=== PATIENT | female | born 1950 | race Caucasian/White ===

== ENCOUNTER → 2024-01-11 08:56 | Outpatient (REF) | payer MEDICARE, OTHER, SELFPAY | LOC: RAD 08:56 | PROVIDERS: ATTENDING PHYSICIAN Student in an Organized Health Care Education/Training Program | DX: M54.30 Sciatica, unspecified side (principal) | CPT/HCPCS: 72110 ==

== ENCOUNTER → 2024-01-31 10:01 | Outpatient (REF) | payer MEDICARE, OTHER, SELFPAY ==
[2024-01-31 11:35] LABS: Blood Urea Nitrogen 20 mg/dl (7-17); Calcium 9.9 mg/dl (8.4-10.2); Carbon Dioxide 27 mmol/L (22-30); Chloride 103 mmol/L (98-107); Glucose 92 mg/dl (70-99); Potassium 3.9 mmol/L (3.5-5.1); Sodium 135 mmol/L (135-145); eGFR 48.09
== END ==
LOC: REG 10:01
PROVIDERS: ATTENDING PHYSICIAN Urology; FAMILY PHYSICIAN Student in an Organized Health Care Education/Training Program
DX: N30.10 Interstitial cystitis (chronic) without hematuria (principal); N32.81 Overactive bladder; M62.89 Other specified disorders of muscle; R31.9 Hematuria, unspecified
CPT/HCPCS: 36415; 80048

== ENCOUNTER → 2024-02-01 14:01 | Outpatient (REF) | payer MEDICARE, OTHER, SELFPAY | LOC: RAD 14:01 | PROVIDERS: ATTENDING PHYSICIAN Urology; FAMILY PHYSICIAN Student in an Organized Health Care Education/Training Program | DX: R31.9 Hematuria, unspecified (principal) | CPT/HCPCS: 74178; Q9967 ==

== ENCOUNTER → 2024-02-05 10:07 | Outpatient (REF) | payer MEDICARE, OTHER, SELFPAY | LOC: PAVMRI 10:07 | PROVIDERS: ATTENDING PHYSICIAN Student in an Organized Health Care Education/Training Program | DX: M54.40 Lumbago with sciatica, unspecified side (principal) | CPT/HCPCS: 72148 ==

== ENCOUNTER → 2024-02-15 08:27 | Outpatient (REF) | payer MEDICARE, OTHER, SELFPAY | LOC: RAD 08:27 | PROVIDERS: ATTENDING PHYSICIAN Student in an Organized Health Care Education/Training Program | DX: R14.0 Abdominal distension (gaseous) (principal) | CPT/HCPCS: 76705 ==

== ENCOUNTER → 2024-03-03 14:45 | Outpatient (REF) | payer MEDICARE, OTHER, SELFPAY | LOC: HWRCS 14:45 | PROVIDERS: ATTENDING PHYSICIAN Student in an Organized Health Care Education/Training Program | DX: M79.89 Other specified soft tissue disorders (principal) | CPT/HCPCS: 93306 ==

== ENCOUNTER 2024-04-01 11:59 | Emergency (ER) | payer MEDICARE, OTHER, SELFPAY ==
[2024-04-01 12:17] VITALS: BP 138/67
--- NOTE | 2024-04-01 13:34 | ED.MUSCINJ ---
HPI-Injury
General
Chief Complaint: Fall
Source: patient
Exam Limitations: none
Time Seen by Provider: 04/01/24 13:10
Nursing documentation reviewed up to this point in time: agreed with
Travel History
Have you had any contact with someone who has COVID-19?: No
Do you have any symptoms of coronavirus? Fever > 100 degrees, chills, cough, shortness of breath, sore throat, loss of taste or smell, muscle aches, or headache?: No
History of Present Illness-Injury
Is this injury a work related problem?: No
Is pt an associate of [facility]?: No
Initial Injury comments:
Patient states shoe stuck on tile floor and she fell. Hit right side of head on floor. No LOC. Large hematoma to right forehead. +headache. Denies dizziness or blurred vision. Abrasions noted to right forearm and left knee. Full nonpainful
ROM to bilateral upper and lower extremities. Incident occurred just POUNCER
Past History
Past History
ED Past Medical History: HTN, Psychiatric (Bipolar, depression) and Other (Chronic bladder spasms, frequent UTIs); Negative IDDM or NIDDM
ED Past Surgical History: Cholecystectomy, Gynecological (Hysterectomy), Orthopedic (Bilateral hip replacements) and Urological (sacral nerve stimulator for bladder spasms, turned off d/t ineffectiveness)
Social History
Tobacco: Former smoker
Alcohol: None
Drug: None
Personal:
Living: with family
Employment: Not employed
Family History
Family History: Other (Noncontributory)
Review of Systems
Review of Systems
Allergies reviewed?: Yes
All Other Systems: ROS reviewed and negative except as documented in HPI and ROS
Constitutional: Reports no symptoms
EENT: Reports no symptoms
Respiratory: Reports no symptoms
Cardiac: Reports no symptoms
ABD/GI: Reports no symptoms
: Reports no symptoms
Musculoskeletal: Reports no symptoms
Skin: Reports other (Abrasions left anterior knee, right forearm)
Neurological: Reports headache
Psychiatric: Reports no symptoms
Skin Exam
Abrasion
Left Anterior Knee:
Description of abrasion: superfical/clean
Right forearm:
Description of abrasion: superfical/clean
Phy Exam
General Physical Exam
General Presentation: well appearing and no apparent distress
General age: appears stated age
General Skin: warm and dry
General Habitus: normal
General Mental: alert
ENT Exam
ENT Exam: EOMI, TM's normal, pharynx normal and neck supple
Eye Exam
Eye Exam: PERRL and EOMI
Neurological Exam
Neurological Exam: alert, oriented x3, CN II-XII intact, no motor deficits and no sensory deficits
Stephanie Coma Scale
Eye Opening: Spontaneous
Verbal Response: Oriented
Motor Response: Obeys Commands
GCS Total Score: 15
Musculoskeletal Exam
Musculoskeletal Exam: full ROM, neuro vasc intact and other (Full nonpainful ROM to head/neck, bilateral upper and lower extremities)
Skin Exam
Skin Exam: normal color, warm/dry, no rash and other (Superficial abrasions to right forearm, left ant. knee)
Psychiatric Exam
Psychiatric Exam: normal mood/affect
Injury Course
Orders/Labs/Results
Orders:
Orders
04/01/24 12:18
CT Head W/o Iv Contrast Urgent
Comment:
Reason For Exam: fall, head injury
04/01/24 13:34
Acetaminophen [Tylenol] 650 mg PO NOW STA
*Radiology
Radiology exam reviewed: radiology read reviewed
*Pulse Oximetry
Patient hypoxic: no
*Critical Care Note
Total Time (30-74mins, 75-104mins- exclusive of procedures): Not Applicable
ED Attending Note
-
Portions of this chart may have been created with voice recognition software.� Occasional wrong word or��sound alike� substitutions may have occurred due to the inherent limitations of voice recognition software.
Discharge Plan
Departure
Patient Disposition: Home (Routine Discharge)
Date of Disposition: 04/01/24
Time of Disposition: 15:19
Patient with high blood pressure during this ER visit?: No
Condition: Good
Covid-19: Not Applicable
Discharge Problem:
Head injury
Instructions: Wound Care (DC), Head Injury in Adults (DC), Skin Abrasions (DC)
Prescriptions:
No Action
sertraline 100 MG tablet
100 mg PO HS
Patient Comments:
at night
primidone 50 MG tablet
250 mg PO HS
lithium carbonate 150 MG capsule
450 mg PO HS
levothyroxine 150 MCG tablet
125 mcg PO DAILY
donepezil 5 MG tablet
5 mg PO HS
hydrochlorothiazide 12.5 MG capsule
12.5 mg PO DAILY
Azo Urinary Pain Relief
30 mg PO BID
primidone 50 MG tablet
50 mg PO DAILY
lamotrigine [Lamictal] 200 MG tablet
600 mg PO HS
fexofenadine-pseudoephedrine [Manisha-D 24 Hour] 1 EACH tablet extended release 24 hr
1 ea PO DAILY
Vitamin D3:
2,000 units PO DAILY
mirabegron [Myrbetriq] 25 MG tablet extended release 24 hr
25 mg PO DAILY
Referrals:
Gerald Arango DO [Family Provider] - Follow up in 2-3 days
Interventions
Interventions:
*Risk Screen - Suicide Last Done: 04/01/24 12:40
*General Assessment Last Done: 04/01/24 12:40
*Neglect/Abuse Screening Last Done: 04/01/24 12:40
ED- Fall Risk Assessment Last Done: 04/01/24 12:42
*ED COVID-19 Vaccine History Last Done: 04/01/24 12:18
ED-Musculoskeletal Assessment Last Done: 04/01/24 12:41
ED- Neurological Assessment Last Done: 04/01/24 12:41
ED-Skin Assessment Last Done: 04/01/24 12:41
Discharge Date and Time
Print Language: SURINAMESE
[2024-04-01] MEDS: TYLENOL 650 MG PO (13:44)
== END 2024-04-01 15:32 | disposition home or self-care (01) ==
LOC: EMR 11:59
PROVIDERS: EMERGENCY PHYSICIAN Emergency Medicine; FAMILY PHYSICIAN Student in an Organized Health Care Education/Training Program
DX: S09.90XA Unspecified injury of head, initial encounter (principal); S00.83XA Contusion of other part of head, initial encounter; S80.212A Abrasion, left knee, initial encounter; S50.811A Abrasion of right forearm, initial encounter; W18.39XA Other fall on same level, initial encounter; Y92.511 Restaurant or cafe as the place of occurrence of the external cause; I10 Essential (primary) hypertension; F31.9 Bipolar disorder, unspecified; F32.A Depression, unspecified; M19.90 Unspecified osteoarthritis, unspecified site; Z87.440 Personal history of urinary (tract) infections; Z91.51 Personal history of suicidal behavior; Z87.891 Personal history of nicotine dependence; Z90.49 Acquired absence of other specified parts of digestive tract
CPT/HCPCS: 99284; 70450

== ENCOUNTER → 2024-04-14 07:32 | Outpatient (REF) | payer MEDICARE, OTHER, SELFPAY ==
[2024-04-14 11:25] LABS: Urine Protein 14 mg/dl
[2024-04-14 12:06] LABS: Lithium 0.9 mmol/L (0.6-1.2)
[2024-04-14 12:14] LABS: Prealbumin (Transthyretin) 24.6 mg/dl (17.6-36.0)
[2024-04-14 12:39] LABS: TSH Reflex To Free T4 2.53 uIU/ml (0.47-4.68)
== END ==
LOC: REG 07:32
PROVIDERS: ATTENDING PHYSICIAN Internal Medicine Cardiovascular Disease; FAMILY PHYSICIAN Student in an Organized Health Care Education/Training Program
DX: R60.0 Localized edema (principal); I10 Essential (primary) hypertension
CPT/HCPCS: 36415; 80178; 82570; 84134; 84156; 84443

== ENCOUNTER 2024-04-16 11:05 | Outpatient (RCR) | payer MEDICARE, OTHER, SELFPAY | END 2024-04-16 23:59 | disposition home or self-care (01) | LOC: RPT 11:05 | PROVIDERS: ATTENDING PHYSICIAN Urology; FAMILY PHYSICIAN Student in an Organized Health Care Education/Training Program | DX: M62.89 Other specified disorders of muscle (principal); N30.10 Interstitial cystitis (chronic) without hematuria; N39.41 Urge incontinence; Z73.6 Limitation of activities due to disability | CPT/HCPCS: 97163; 97530 ==

== ENCOUNTER → 2024-04-17 13:45 | Outpatient (REF) | payer MEDICARE, OTHER, SELFPAY | LOC: RAD 13:45 | PROVIDERS: ATTENDING PHYSICIAN Student in an Organized Health Care Education/Training Program | DX: M79.89 Other specified soft tissue disorders (principal); R22.42 Localized swelling, mass and lump, left lower limb; R22.41 Localized swelling, mass and lump, right lower limb | CPT/HCPCS: 93970 ==

== ENCOUNTER 2024-04-17 16:02 | Emergency (ER) | payer MEDICARE, OTHER, SELFPAY ==
[2024-04-17 16:04] VITALS: BP 158/51
[2024-04-17 17:02] LABS: % Basophils 0.8 % (0-2); % Eosinophils 3.3 % (0-6); % Immature Granulocytes 0.6 % (0-0.5); % Monocytes 6.2 % (1.7-9.3); % Neutrophils 70.1 % (42.2-75.2); Absolute Eosinophils 0.2 10^3/uL (0-0.7); Absolute Monocytes 0.3 10^3/uL (0.1-0.6); Absolute Neutrophils 3.6 10^3/uL (1.4-6.5); Hematocrit 37.6 % (37.0-47.0); Hemoglobin 12.7 g/dL (12.0-16.0); Mean Corp Hgb Conc. 33.8 g/dL (33.0-37.0); Mean Corpuscular Hgb 31.6 pg (27.0-31.0); Mean Corpuscular Volume 93.5 fL (81.0-99.0); Mean Platelet Volume 8.6 fL (7.4-10.4); Nucleated Red Blood Cells % 0 %; Platelet Count 137 10^3/uL (130-400); Red Blood Cell Count 4.02 10^6/uL (4.20-5.40); Red Cell Dist. Width 12.9 % (11.5-14.5); White Blood Cell Count 5.2 10^3/uL (4.8-10.8)
[2024-04-17 17:11] LABS: ALT (SGPT) 16 U/L (0-35); AST (SGOT) 30 U/L (14-36); Albumin 4.2 g/dl (3.5-5.0); Alkaline Phosphatase 90 U/L (38-126); Blood Urea Nitrogen 20 mg/dl (7-17); Calcium 10.1 mg/dl (8.4-10.2); Carbon Dioxide 35 mmol/L (22-30); Chloride 104 mmol/L (98-107); Glucose 100 mg/dl (70-99); Sodium 143 mmol/L (135-145); Total Bilirubin 0.5 mg/dl (0.2-1.3); Total Protein 6.8 g/dl (6.3-8.2); eGFR 39.97
[2024-04-17] MEDS: TYLENOL 650 MG PO (17:40)
[2024-04-17 18:49] VITALS: BP 123/61
[2024-04-17 19:00] VITALS: BP 117/53
--- NOTE | 2024-04-17 19:52 | ED.MUSCINJ ---
HPI-Injury
General
Chief Complaint: Fall
Time Seen by Provider: 04/17/24 16:20
Travel History
Have you had any contact with someone who has COVID-19?: No
Do you have any symptoms of coronavirus? Fever > 100 degrees, chills, cough, shortness of breath, sore throat, loss of taste or smell, muscle aches, or headache?: No
History of Present Illness-Injury
Initial Injury comments:
73-year-old female with a history of chronic back pain, sciatica, hypertension, anxiety, history of blood clot presenting to the emergency department after fall. Patient reports that she was getting an outpatient ultrasound of her lower extremity
to rule out a blood clot. After getting the study completed, she was getting a call from her doctor and tripped on her foot, which she attributes to her sciatica. She notes that she is supposed to use a walker, however is noncompliant with it.
She subsequently fell, struck the back of her head loss of consciousness. Also struck her right hip. She has since been able to ambulate. She does note some right hip pain. Denies any significant head pain or visual changes. She notes that the
ultrasound was positive for a DVT. Reports she had a blood clot in her left upper extremity in the past, was on Eliquis, however it was provoked after surgery to her shoulder. She denies any presyncopal symptoms such as chest pain or difficulty
breathing. Denies any dizziness or lightheadedness. Denies any present dyspnea or chest pain. Notes that she has been having chronic lower extremity swelling and pain, denies numbness. Denies additional acute medical complaint
Past History
Past History
ED Past Medical History: HTN, Psychiatric (Bipolar, depression) and Other (Chronic bladder spasms, frequent UTIs); Negative IDDM or NIDDM
ED Past Surgical History: Cholecystectomy, Gynecological (Hysterectomy), Orthopedic (Bilateral hip replacements) and Urological (sacral nerve stimulator for bladder spasms, turned off d/t ineffectiveness)
Social History
Tobacco: Former smoker
Alcohol: None
Drug: None
Personal:
Living: with family
Employment: Not employed
Family History
Family History: Other (Noncontributory)
Phy Exam
Physical Exam
Physical Exam:
GENERAL: Alert , in no apparent distress
EYE: pupils equal and reactive
NECK: Supple, no significant adenopathy. No cervical tenderness
ENT: o/p clr, mmm.
CARDIAC: Regular rate and rhythm .
LUNGS: Clear breath sounds bilaterally, no acute respiratory distress, no wheezes/rales/rhonchi
ABDOMEN: Soft, without focal tenderness, no r/g, no cvat
NEUROLOGICAL: Alert and oriented, no focal neuro deficits
SKIN: Warm and dry, skin intact. Small abrasion to the right elbow
MUSCULOSKELETAL: No tenderness to the back. Mild tenderness to the right hip with range of motion grossly intact. Generalized swelling to bilateral lower extremities, with sensation and pulses intact bilaterally. Generalized tenderness bilaterally
PSYCH: Normal and appropriate interaction.
Injury Course
Orders/Labs/Results
Orders:
Orders
04/17/24 16:46
Complete Blood Count/With Diff Urgent
Comprehensive Metabolic Panel Urgent
04/17/24 16:58
Hip, Right 2-3 Views [CR Hip - RT w/wo Pel 2-3 Vw*] Urgent
Comment:
Reason For Exam: fall
Include a pelvis x-ray?: Yes
04/17/24 16:59
CT Head W/o Iv Contrast Urgent
Comment:
Reason For Exam: fall
Acetaminophen [Tylenol] 650 mg PO NOW STA
Abnormal Lab Results
04/17/24
16:46
RBC 4.02 L 10^6/uL
(4.20-5.40)
MCH 31.6 H pg
(27.0-31.0)
Absolute Lymphs (auto) 1.0 L 10^3/uL
(1.2-3.4)
Immature Gran % 0.6 H %
(0-0.5)
Lymphocytes % 19.0 L %
(20.5-51.1)
Carbon Dioxide 35 H mmol/L
(22-30)
BUN 20 H mg/dl
(7-17)
Creatinine 1.4 H mg/dL
(0.6-1.0)
Glucose 100 H mg/dl
(70-99)
04/17/24 16:46
04/17/24 16:46
MDM/Problems Addressed
MDM/Problems Addressed:
73-year-old female with a history of chronic back pain, sciatica, hypertension, anxiety, history of blood clot presenting after a fall. Vital signs on arrival significant for high blood pressure.
On physical exam, patient well-appearing, no acute distress or discomfort. GCS of 15. No significant signs of head trauma. Mild abrasion to the right elbow, otherwise no significant signs of trauma to the extremities. Unremarkable cardiac and
pulmonary exam. Patient notes fall mechanical in nature, tripped on her footing, which she has done in the past secondary to her chronic back pain and sciatica. Notes history of falls in the past, last fell 2 weeks ago. No concern for syncope at
this time. Given patient's age, report of head trauma, will screen with CT brain imaging. Patient also notes that she landed on her right hip, will screen with x-ray imaging. Patient had outpatient ultrasound imaging completed, will review for
potential need of anticoagulation. Notes that she has been on Eliquis in the past.
10:00 - Patient's hip x-ray without fracture. CT brain without acute intracranial abnormality. Ultrasound shows a left nonocclusive DVT to the profunda vein. Patient notes that she received a call from her primary care doctor, plan for starting
anticoagulation. Agreed to prescribe starter pack, has been on Eliquis in the past. Screening laboratory analysis performed, mild ERENDIRA, however at baseline. However, had extensive conversation with patient regarding risks of Eliquis with recurrent
falls. Explained risks of intracranial bleeding as well as bleeding in general. Patient verbalized understanding, notes that she will be more diligent in using her walker. Advise close follow-up with her primary care doctor within the next week.
Otherwise feel stable for discharge strict return precautions communicated and patient verbalized understanding
*Critical Care Note
Total Time (30-74mins, 75-104mins- exclusive of procedures): Not Applicable
ED Attending Note
-
Portions of this chart may have been created with voice recognition software.� Occasional wrong word or��sound alike� substitutions may have occurred due to the inherent limitations of voice recognition software.
Discharge Plan
Departure
Patient Disposition: Home (Routine Discharge)
Date of Disposition: 04/17/24
Time of Disposition: 19:52
Patient with high blood pressure during this ER visit?: Yes
Condition: Good
Discharge Problem:
Fall from standing, Deep vein thrombosis (DVT) of left lower extremity
Instructions: Deep vein thrombosis (blood clot in the leg), Preventing falls in adults, Deep vein thrombosis - Discharge instructions, BLOOD PRESSURE
Prescriptions:
New
apixaban 5 mg (74 tabs) tablets,dose pack
See Rx Instructions .ROUTE .COMPLEX Qty: 74 0RF
Rx Instructions:
orally per package directions
No Action
sertraline 100 MG tablet
100 mg PO HS
Patient Comments:
at night
primidone 50 MG tablet
250 mg PO HS
lithium carbonate 150 MG capsule
450 mg PO HS
levothyroxine 150 MCG tablet
125 mcg PO DAILY
donepezil 5 MG tablet
5 mg PO HS
hydrochlorothiazide 12.5 MG capsule
12.5 mg PO DAILY
Azo Urinary Pain Relief
30 mg PO BID
primidone 50 MG tablet
50 mg PO DAILY
lamotrigine [Lamictal] 200 MG tablet
600 mg PO HS
fexofenadine-pseudoephedrine [Manisha-D 24 Hour] 1 EACH tablet extended release 24 hr
1 ea PO DAILY
Vitamin D3:
2,000 units PO DAILY
mirabegron [Myrbetriq] 25 MG tablet extended release 24 hr
25 mg PO DAILY
Referrals:
Gerald Arango DO [Family Provider] -
Activity Restrictions/Additional Instructions:
Please follow-up closely for your primary care doctor for your known deep venous thrombosis. You were prescribed Eliquis for 1 month, which you have taken in the past. You will need to follow-up with your primary care doctor for instructions and a
prescription for continuing this medication. Return immediately to the emergency department if you develop an allergic reaction to this medication. We discussed the importance of fall safety while on this medication with risk of bleeding. Please
use your walker as much as possible to prevent falls. Return to the hospital with any worsening lower extremity swelling, development of chest pain, difficulty breathing, weakness, numbness or tingling to your extremities, lightheadedness or feel
like you are going to pass out
Interventions
Interventions:
*Risk Screen - Suicide Last Done: 04/17/24 16:27
*General Assessment Last Done: 04/17/24 16:27
*Neglect/Abuse Screening Last Done: 04/17/24 16:27
ED-Musculoskeletal Assessment Last Done: 04/17/24 16:27
ED- Neurological Assessment Last Done: 04/17/24 16:27
ED-Skin Assessment Last Done: 04/17/24 16:27
Discharge Date and Time
Print Language: THAI
== END 2024-04-17 20:56 | disposition home or self-care (01) ==
LOC: EMR 16:02
PROVIDERS: EMERGENCY PHYSICIAN Student in an Organized Health Care Education/Training Program; FAMILY PHYSICIAN Student in an Organized Health Care Education/Training Program
DX: I82.402 Acute embolism and thrombosis of unspecified deep veins of left lower extremity (principal); S50.311A Abrasion of right elbow, initial encounter; W18.30XA Fall on same level, unspecified, initial encounter; I10 Essential (primary) hypertension; F31.9 Bipolar disorder, unspecified; N17.9 Acute kidney failure, unspecified; Z87.440 Personal history of urinary (tract) infections; Z87.891 Personal history of nicotine dependence; Z90.49 Acquired absence of other specified parts of digestive tract; Z90.710 Acquired absence of both cervix and uterus; Z96.643 Presence of artificial hip joint, bilateral
CPT/HCPCS: 99284; 70450; 73502; 80053; 85025

== ENCOUNTER → 2024-05-12 19:26 | Outpatient (REF) | payer MEDICARE, OTHER, SELFPAY | LOC: MRI 19:26 | PROVIDERS: ATTENDING PHYSICIAN Student in an Organized Health Care Education/Training Program | DX: M79.89 Other specified soft tissue disorders (principal) | CPT/HCPCS: 72197; A9575 ==

== ENCOUNTER → 2024-05-30 13:05 | Outpatient (REF) | payer MEDICARE, OTHER, SELFPAY | LOC: RAD 13:05 | PROVIDERS: ATTENDING PHYSICIAN Internal Medicine Cardiovascular Disease; FAMILY PHYSICIAN Student in an Organized Health Care Education/Training Program | DX: R60.0 Localized edema (principal) | CPT/HCPCS: 93970 ==

== ENCOUNTER 2024-08-04 08:34 | Day surgery (SDC) | payer MEDICARE, OTHER, SELFPAY ==
[2024-07-28 08:24] VITALS: BMI 21.9
[2024-08-04] VITALS (9 sets, daily range): BP systolic 134–161; BP diastolic 53–73; BMI 21.9
[2024-08-04] MEDS: NORMOSOL-R/PLASMALYTE-A 1000 IV (09:34)
[2024-08-04] MEDS: TYLENOL 650 MG PO (11:52)
== END 2024-08-04 12:38 | disposition home or self-care (01) ==
LOC: SDS 08:34
PROVIDERS: ATTENDING PHYSICIAN Urology; FAMILY PHYSICIAN Student in an Organized Health Care Education/Training Program
DX: N30.10 Interstitial cystitis (chronic) without hematuria (principal)
CPT/HCPCS: 52204; 52260; 88305; 88342

== ENCOUNTER → 2024-08-15 17:13 | Outpatient (REF) | payer MEDICARE, OTHER, SELFPAY | LOC: PAVMRI 17:13 | PROVIDERS: ATTENDING PHYSICIAN Physician Assistant Surgical; FAMILY PHYSICIAN Student in an Organized Health Care Education/Training Program | DX: M53.3 Sacrococcygeal disorders, not elsewhere classified (principal); M54.50 Low back pain, unspecified; M54.16 Radiculopathy, lumbar region | CPT/HCPCS: 72148 ==

== ENCOUNTER → 2024-09-02 12:06 | Outpatient (REF) | payer MEDICARE, OTHER, SELFPAY ==
[2024-09-02 16:59] LABS: Urine Albumin Trace (Neg - Trace); Urine Bilirubin 3+ (Negative); Urine Character Very Cloudy (Clear); Urine Color Yellow; Urine Glucose Negative (Negative); Urine Ketone Negative (Negative); Urine Leukocyte 2+ (Negative); Urine Nitrite Positive (Negative); Urine Occult Blood 2+ (Negative); Urine Specific Gravity 1.015 (<1.030); Urine Urobilinogen 4+ (Neg - 1+)
[2024-09-02 17:36] LABS: Urine Squamous Cell 26-30 /LPF (Few)
[2024-09-02 17:37] LABS: Urine Bacteria Many (Negative); Urine White Cell 70-80 /HPF (0-5)
== END ==
LOC: CLAB 12:06
PROVIDERS: ATTENDING PHYSICIAN Nurse Practitioner
DX: N39.0 Urinary tract infection, site not specified (principal)
CPT/HCPCS: 81003; 81015; 87077; 87086; 87186

== ENCOUNTER → 2024-12-24 10:35 | Outpatient (REF) | payer MEDICARE, OTHER, SELFPAY ==
[2024-12-24 11:26] LABS: Urine Albumin 2+ (Neg - Trace); Urine Bilirubin 2+ (Negative); Urine Character Cloudy (Clear); Urine Glucose Negative (Negative); Urine Ketone Negative (Negative); Urine Leukocyte 3+ (Negative); Urine Nitrite Positive (Negative); Urine Occult Blood 4+ (Negative); Urine Urobilinogen 2+ (Neg - 1+)
[2024-12-24 11:33] LABS: Urine Color Orange
[2024-12-24 11:55] LABS: Urine Squamous Cell >30 /LPF (Few)
[2024-12-24 12:36] LABS: Urine Amorphous Seen
[2024-12-24 12:40] LABS: Urine Bacteria Many (Negative); Urine White Cell >100 /HPF (0-5)
== END ==
LOC: REG 10:35
PROVIDERS: ATTENDING PHYSICIAN Urology; FAMILY PHYSICIAN Family Medicine
DX: N39.0 Urinary tract infection, site not specified (principal)
CPT/HCPCS: 81003; 81015; 87077; 87086; 87186

== ENCOUNTER 2025-02-14 23:55 | Emergency (ER) | payer MEDICARE, OTHER, SELFPAY ==
[2025-02-14 23:55] VITALS: BMI 22.2
[2025-02-14 23:57] VITALS: BP 155/52
[2025-02-15] VITALS: BP 155/52
--- NOTE | 2025-02-15 00:05 | ED.MUSCINJ ---
HPI-Injury
General
Chief Complaint: Fall
Source: patient
Exam Limitations: none
Time Seen by Provider: 02/14/25 23:57
History of Present Illness-Injury
Initial Injury comments:
74-year-old female presents via EMS where she lives at home with her with complaints of left thigh and knee pain. She fell today and is having trouble getting up and since then her knee has been swollen and she has been having trouble
bearing weight on her left leg. She has a history of bilateral knee replacements. She also takes Eliquis. She assures me after multiple times asking she did not hit her head. She denies headache or neck pain. No other complaints at this time
Past History
Past History
ED Past Medical History: HTN, Psychiatric (Bipolar, depression) and Other (Chronic bladder spasms, frequent UTIs); Negative IDDM or NIDDM
ED Past Surgical History: Cholecystectomy, Gynecological (Hysterectomy), Orthopedic (Bilateral hip replacements) and Urological (sacral nerve stimulator for bladder spasms, turned off d/t ineffectiveness)
Social History
Tobacco: Former smoker
Alcohol: None
Drug: None
Personal:
Living: with family
Employment: Not employed
Family History
Family History: Other (Noncontributory)
Phy Exam
Physical Exam
Physical Exam:
General: Well-appearing female no acute respiratory distress
HEENT normocephalic no scalp abrasions or hematomas no signs of trauma
Heart: Regular rate and rhythm
Lungs: Clear no wheeze
Musculoskeletal exam: Left knee is with effusion she is able to straight leg raise. She is tender diffusely about the knee and distal femur. She is also slightly tender about the left hip. No deformities. Internal and external rotation does not
reproduce left hip pain the spine is nontender
Neurologic exam: Alert and oriented
Injury Course
Orders/Labs/Results
Orders:
Orders
02/15/25 00:07
CR Femur - Left Min 2 Vw Urgent
Comment:
Reason For Exam: fall
CR Knee - Left 4 Or More View* Urgent
Comment:
Reason For Exam: fall
CR Pelvis - 1 Or 2 Views Urgent
Comment:
Reason For Exam: left hip pain
MDM/Problems Addressed
Differential Diagnosis Includes:
Fall with left knee and thigh pain. Consider contusion versus fracture. No head strike. No spine tenderness. X-rays of pelvis left femur and knee pending
*Critical Care Note
Total Time (30-74mins, 75-104mins- exclusive of procedures): Not Applicable
Update Note
Update Note:
X-rays of the pelvis femur and left knee are reviewed and are negative for fracture. There is an effusion in the left knee. Patiently placed in a knee immobilizer. No indication for admission. She feels comfortable with discharge home
ED Attending Note
-
Portions of this chart may have been created with voice recognition software.� Occasional wrong word or��sound alike� substitutions may have occurred due to the inherent limitations of voice recognition software.
Discharge Plan
Departure
Patient Disposition: Home (Routine Discharge)
Date of Disposition: 02/15/25
Time of Disposition: 01:27
Patient with high blood pressure during this ER visit?: No
Discharge Problem:
Effusion of knee
Instructions: Preventing falls in adults
Prescriptions:
No Action
sertraline 100 MG tablet
100 mg PO HS
Patient Comments:
at night
primidone 50 MG tablet
250 mg PO HS
primidone 50 MG tablet
50 mg PO DAILY
levothyroxine 125 mcg Tablet
125 mcg PO DAILY
lithium carbonate 450 mg Tablet Extended Release
450 mg PO HS
lamotrigine [Lamictal] 150 mg Tablet
300 mg PO QPM
pravastatin 10 mg Tablet
10 mg PO DAILY
Eliquis 5 mg Tablet
5 mg PO BID
cholecalciferol (vitamin D3) [Vitamin D3] 50 mcg (2,000 unit) Capsule
50 mcg PO DAILY
Referrals:
UNKNOWN - PT DOES,NOT KNOW [Family Provider] -
Activity Restrictions/Additional Instructions:
Ice for swelling. Use Tylenol for pain. Use brace for support. Follow-up with your orthopedic doctor for further evaluation
Interventions
Interventions:
*Risk Screen - Suicide Last Done: 02/14/25 23:57
*General Assessment Last Done: 02/14/25 23:57
*Neglect/Abuse Screening Last Done: 02/14/25 23:57
*ED COVID-19 Vaccine History Last Done: 02/14/25 23:57
ED-Musculoskeletal Assessment Last Done: 02/15/25 00:12
ED- Neurological Assessment Last Done: 02/15/25 00:11
ED-Skin Assessment Last Done: 02/15/25 00:12
Discharge Date and Time
Print Language: MAURITIAN
[2025-02-15 01:01] VITALS: BP 154/67
[2025-02-15] MEDS: TYLENOL 650 MG PO (01:56)
== END 2025-02-15 02:19 | disposition home or self-care (01) ==
LOC: EMR 23:55
PROVIDERS: EMERGENCY PHYSICIAN Emergency Medicine
DX: M25.462 Effusion, left knee (principal); I10 Essential (primary) hypertension; Z90.49 Acquired absence of other specified parts of digestive tract; Z90.710 Acquired absence of both cervix and uterus; Z96.643 Presence of artificial hip joint, bilateral; Z96.653 Presence of artificial knee joint, bilateral; Z87.891 Personal history of nicotine dependence
CPT/HCPCS: 29505; 99283; 72170; 73552; 73564

== ENCOUNTER 2025-03-19 09:54 | Inpatient (IN) | payer MEDICARE, OTHER, SELFPAY ==
[2025-03-19] VITALS (10 sets, daily range): BP systolic 128–173; BP diastolic 41–65; BMI 22.1
--- NOTE | 2025-03-19 07:16 | ED.GENMED ---
History of Present Illness
General
Chief Complaint: Weakness
Source: patient and ambulance crew
Exam Limitations: none
Time Seen by Provider: 03/19/25 07:12
Nursing documentation reviewed up to this point in time: agreed with
History of Present Illness
History of Present Illness:
74-year-old female past medical history of DVT currently on Eliquis, psychiatric illness currently on lithium and lamotrigine presenting to the emergency department today with concerns of generalized weakness worsening over the past few days. Has
had diarrhea multiple episodes per day that is described as dark and brown. Has had some increasing difficulty ambulating secondary to the generalized weakness. Denies any specific chest pain shortness of breath nausea vomiting or fevers. Denies
specific upper respiratory symptoms.
Past History
Past History
ED Past Medical History: HTN, Psychiatric (Bipolar, depression) and Other (Chronic bladder spasms, frequent UTIs); Negative IDDM or NIDDM
ED Past Surgical History: Cholecystectomy, Gynecological (Hysterectomy), Orthopedic (Bilateral hip replacements) and Urological (sacral nerve stimulator for bladder spasms, turned off d/t ineffectiveness)
Social History
Tobacco: Former smoker
Alcohol: None
Drug: None
Personal:
Living: with family
Employment: Not employed
Family History
Family History: Other (Noncontributory)
Review of Systems
Review of Systems
Allergies reviewed?: Yes
All Other Systems: ROS reviewed and negative except as documented in HPI and ROS
Phy Exam
Physical Exam
Physical Exam:
GENERAL: Alert , in no apparent distress
EYE: pupils equal and reactive
NECK: Supple, no significant adenopathy.
ENT: o/p clr, mmm.
CARDIAC: Regular rate and rhythm .
LUNGS: Clear breath sounds bilaterally, no acute respiratory distress, no wheezes/rales/rhonchi
ABDOMEN: Soft, without focal tenderness, no r/g, no cvat
NEUROLOGICAL: Alert and oriented, no focal neuro deficits
SKIN: Warm and dry, skin intact.
MUSCULOSKELETAL: No edema, well perfused.
PSYCH: Normal and appropriate interaction.
Course
Orders/Labs/Results
Orders:
Orders
03/19/25 07:06
Electrocardiogram (*1) Urgent
Reason for Study: Fatigue / Weakness
03/19/25 07:07
EKG- Treatment ONCE
03/19/25 07:10
Complete Blood Count/With Diff Urgent
Comprehensive Metabolic Panel Urgent
[place] Urgent
Magnesium Urgent
03/19/25 07:15
COVID-19 Antigen Urgent
Source: Nasal Swab
Influenza A+B Rapid Molecular Urgent
ARAMIS Source: Nasal Swab
Specimen Description:
03/19/25 07:22
Lamotrigine (Lamictal) [S] Urgent
TSH Reflex To Free T4 Urgent
Troponin I Urgent
03/19/25 07:24
Type+Screen Urgent
BBK Wristband Number:
03/19/25 07:35
Pantoprazole [Protonix IV] 80 mg IV NOW STA
03/19/25 07:53
0.9% Sodium Chloride 1000 ml [Nss] 1,000 ml IV BOLUS
03/19/25 09:22
Admit/Transfer Patient As Directed
Co-Sign Provider:
Level of Care: Inpatient admission
Assign to:: Telemetry
Physician / Group: lyric soriano
Diagnosis: [place] toxicity
Reason for Telemetry: Medication for Arrhythmia
Date to Stop Telemetry: 03/21/25
Time to Stop Telemetry: 11:00
Reason for Hospitalization: [place] toxicity
Expected length of stay greater than two midnights?: Yes
ELOS- Estimated Length of Stay in days: 2
I certify the patient meets the requirements for IP care: Yes
PRN Pain Medication Management As Directed
May give lesser potent ordered pain med per pt: Yes
preference::
Protocol:: Medication orders for pain may be administered in a
manner that supports deferring to patient preference
when the pt is:
- Requesting an ordered lesser potent pain medication.
Least to most potent pain medications are defined
as: acetaminophen < NSAID < tramadol < opioids
(morphine, oxycodone, hydromorphone).
- Requesting a lesser dose of the same medication IF
ORDERED.
- Requesting a less intrusive route of administration
if both routes are prescribed by the provider (PO <
IV).
03/19/25 09:25
Code Status As Directed
Resuscitation Status: Full Code
03/21/25 11:00
DC Protocol for Telemetry ONCE
Abnormal Lab Results
03/19/25
07:10
WBC 4.5 L 10^3/uL
(4.8-10.8)
MCH 31.9 H pg
(27.0-31.0)
MCHC 32.9 L g/dL
(33.0-37.0)
Plt Count 114 L 10^3/uL
(130-400)
Absolute Lymphs (auto) 0.7 L 10^3/uL
(1.2-3.4)
Lymphocytes % 15.0 L %
(20.5-51.1)
Chloride 111 H mmol/L
(98-107)
Creatinine 1.1 H mg/dL
(0.6-1.0)
[place] 2.5 H* mmol/L
(0.6-1.2)
03/19/25 07:10
03/19/25 07:10
Vital Signs
Initial and Last Documented VS:
Initial Vital Signs
Temp Pulse Resp BP Pulse Ox
98.3 F 50 17 167/61 98
03/19/25 07:04 03/19/25 07:04 03/19/25 07:04 03/19/25 07:04 03/19/25 07:04
Last Documented Vital Signs
Temp Pulse Resp BP Pulse Ox
98.3 F 44 11 131/41 96
03/19/25 07:04 03/19/25 09:00 03/19/25 09:00 03/19/25 09:00 03/19/25 08:45
MDM/Problems Addressed
MDM/Problems Addressed:
74-year-old female presenting with concerns of generalized weakness fatigue coming from home. Denies any specific symptoms other than some diarrhea that is been dark in color. Here is vaguely guaiac positive and very dark brown. Vital signs are
normal on arrival. Patient with no abdominal pain normal heart and lung exam no upper respiratory symptoms. Here lithium level was double the normal level. This could be causing patient's symptoms. She claims she is was having to significant
difficulty with ambulation at home considering the symptomatic potential lithium toxicity plan to admit for further monitoring and treatment. Patient started on IV fluid bolus.
*Critical Care Note
Total Time (30-74mins, 75-104mins- exclusive of procedures): Not Applicable
ED Attending Note
-
Portions of this chart may have been created with voice recognition software.� Occasional wrong word or��sound alike� substitutions may have occurred due to the inherent limitations of voice recognition software.
Discharge Plan
Departure
Patient Disposition: Admit
Date of Disposition: 03/19/25
Time of Disposition: 09:48
Admit to: Telemetry
Admit to doctor: Neo
Presentation/result/management discussed w/ accepting MD/DO: Hospitalist
Patient with high blood pressure during this ER visit?: No
Condition: Fair
Covid-19: Not Applicable
Discharge Problem:
[place] toxicity
Prescriptions:
No Action
sertraline 100 MG tablet
100 mg PO HS
primidone 50 MG tablet
50 mg PO DAILY
levothyroxine 125 mcg Tablet
125 mcg PO DAILY
lamotrigine [Lamictal] 150 mg Tablet
300 mg PO QPM
pravastatin 10 mg Tablet
10 mg PO DAILY
Eliquis 5 mg Tablet
5 mg PO BID
cholecalciferol (vitamin D3) [Vitamin D3] 50 mcg (2,000 unit) Capsule
50 mcg PO DAILY
acetaminophen [Tylenol] 325 mg Tablet
650 mg PO Q6HPRN PRN (Reason: mild pain)
lithium carbonate 150 mg capsule
150 mg PO HS
primidone 250 mg Tablet
250 mg PO HS
lithium carbonate 300 mg Capsule
300 mg PO HS
bismuth subsalicylate [Pepto-Bismol] 262 mg Tablet,Chewable
2 tab PO DAILYPRN PRN (Reason: stomach issues)
diazepam [Valium] 5 mg Tablet
5 mg PO HS
Referrals:
Reji Vázquez MD [Family Provider] -
Interventions
Interventions:
*Risk Screen - Suicide Last Done: 03/19/25 07:04
*General Assessment Last Done: 03/19/25 07:04
*Neglect/Abuse Screening Last Done: 03/19/25 07:04
*ED- Fall Risk Assessment Last Done: 03/19/25 07:04
*ED COVID-19 Vaccine History Last Done: 03/19/25 07:04
ED- Cardiac Assessment Last Done: 03/19/25 07:04
ED- Neurological Assessment Last Done: 03/19/25 07:04
ED- Pulmonary Assessment Last Done: 03/19/25 07:04
Discharge Date and Time
Print Language: HUNGARIAN
[2025-03-19 07:47] LABS: % Basophils 0.7 % (0-2); % Eosinophils 1.8 % (0-6); % Immature Granulocytes 0.2 % (0-0.5); % Monocytes 7.5 % (1.7-9.3); % Neutrophils 74.8 % (42.2-75.2); Absolute Eosinophils 0.1 10^3/uL (0-0.7); Absolute Lymphocytes 0.7 10^3/uL (1.2-3.4); Absolute Monocytes 0.3 10^3/uL (0.1-0.6); Absolute Neutrophils 3.4 10^3/uL (1.4-6.5); Hematocrit 41.3 % (37.0-47.0); Hemoglobin 13.6 g/dL (12.0-16.0); Mean Corp Hgb Conc. 32.9 g/dL (33.0-37.0); Mean Corpuscular Hgb 31.9 pg (27.0-31.0); Mean Corpuscular Volume 96.7 fL (81.0-99.0); Mean Platelet Volume 8.8 fL (7.4-10.4); Nucleated Red Blood Cells % 0 %; Platelet Count 114 10^3/uL (130-400); Red Blood Cell Count 4.27 10^6/uL (4.20-5.40); Red Cell Dist. Width 12.7 % (11.5-14.5); White Blood Cell Count 4.5 10^3/uL (4.8-10.8)
[2025-03-19 07:50] LABS: ALT (SGPT) 14 U/L (0-35); AST (SGOT) 21 U/L (14-36); Albumin 3.8 g/dl (3.5-5.0); Alkaline Phosphatase 92 U/L (38-126); Blood Urea Nitrogen 16 mg/dl (7-17); Calcium 9.9 mg/dl (8.4-10.2); Carbon Dioxide 27 mmol/L (22-30); Chloride 111 mmol/L (98-107); Glucose 93 mg/dl (70-99); Lithium 2.5 mmol/L (0.6-1.2); Magnesium 2.1 mg/dl (1.6-2.3); Potassium 3.8 mmol/L (3.5-5.1); Sodium 140 mmol/L (135-145); Total Bilirubin 0.6 mg/dl (0.2-1.3); Total Protein 6.7 g/dl (6.3-8.2); eGFR 53.06
[2025-03-19 07:57] LABS: COVID-19 Antigen Negative (Negative)
[2025-03-19 07:59] LABS: Troponin I 0.023 ng/ml
[2025-03-19] MEDS: PROTONIX IV 80 MG IV (08:05)
[2025-03-19] MEDS: NSS 1000 IV ×3 (08:06→21:09)
[2025-03-19 08:19] LABS: TSH Reflex To Free T4 4.61 uIU/ml (0.47-4.68)
--- NOTE | 2025-03-19 09:04 | HPS.HSE ---
Family Physician
-
Family Physician: Reji Vázquez
Chief Complaint
-
Generalized weakness, diarrhea
History of Present Illness
Patient is 74 years old with history of DVT, on Eliquis, bipolar, on lithium, history of hypertension, history of depression, who came to the ER with generalized weakness, fatigue, patient was having diarrhea, nausea, no vomiting, no abdominal pain,
denies chest pain or shortness of breath.
Initial blood work in the ER shows evidence of elevated lithium level and patient will be admitted for lithium toxicity.
Patient has been on lithium for many years and no issue with lithium toxicity in the past.
[place] seems to help with her psychiatry symptoms.
Patient will be admitted under hospitalist service.
Medical History
Past Medical History
Past Medical History: Reports HTN and Other
Additional Past Medical History:
Psychiatric (Bipolar, depression) and Other (Chronic bladder spasms, frequent UTIs)
Past Surgical History: Reports Cholecystectomy, Gynocological and Other
Additional Past Surgical History:
Gynecological (Hysterectomy), Orthopedic (Bilateral hip replacements) and Urological (sacral nerve stimulator for bladder spasms, turned off d/t ineffectiveness)
Social History
Tobacco: Former Smoker
Alcohol: None
Drug: None
Personal:
Living: With Family
Family History
Family History: Not pertinent
Allergies / Home Medications
Allergies reflects when Allergies were last updated in [facility].
Home Medications with original date entered in [facility]
Allergy/Medication List:
Allergies
Allergy/AdvReac Type Severity Reaction Status Date / Time
levofloxacin [From Levaquin] Allergy Hives Verified 02/15/25 00:10
nitrofurantoin Allergy Hives Verified 02/15/25 00:10
[From Macrobid]
Home Medications
sertraline 100 mg tablet 100 mg PO HS depression 11/27/14
primidone 50 mg tablet 50 mg PO DAILY 04/29/21
apixaban 5 mg tablet (Eliquis) 5 mg PO BID DVT leg 07/29/24
cholecalciferol (vitamin D3) 50 mcg (2,000 unit) capsule (Vitamin D3) 50 mcg PO DAILY 07/29/24
lamotrigine 150 mg tablet (Lamictal) 300 mg PO QPM 07/29/24
levothyroxine 125 mcg tablet 125 mcg PO DAILY 07/29/24
pravastatin 10 mg tablet 10 mg PO DAILY 07/29/24
acetaminophen 325 mg tablet (Tylenol) 650 mg PO Q6HPRN PRN mild pain 03/19/25
bismuth subsalicylate 262 mg chewable tablet (Pepto-Bismol) 2 tab PO DAILYPRN PRN stomach issues 03/19/25
diazepam 5 mg tablet (Valium) 5 mg PO HS 03/19/25
lithium carbonate 150 mg capsule 150 mg PO HS 03/19/25
lithium carbonate 300 mg capsule 300 mg PO HS 03/19/25
primidone 250 mg tablet 250 mg PO HS 03/19/25
Review of Systems
-
A 12 point ROS was completed and negative except as noted: Yes
Constitutional: Reports Fatigue; Denies Fever, Weight Gain or Sleep Disturbance
EENT: Denies Tearing, Sore Throat, Mouth Pain, Mouth Swelling or Runny Nose
Respiratory: Denies Cough, Hemoptysis or Trouble Breathing
Cardiac: Denies Chest Pain, Diaphoresis, Palpitations or Syncope
Abdomen/GI: Reports Nausea, Diarrhea and Black Stools; Denies Abdominal Pain, Vomiting, Constipated or Bloody Stools
: Denies Dysuria, Frequency, Flank Pain, Incontinence, Difficulty Voiding, Urgency, Bleeding or Dark Urine
Musculoskeletal: Denies Joint Pain, Joint Swelling, Muscle Pain, Muscle Stiffness or Edema
Skin: Denies Itching or Rash
Neurological: Denies Dizzy, Headache, Weakness or Numbness
Endocrine: Denies Polyuria, Polydipsia or Temp Intolerance
Hematologic/Lymphatic: Denies Bleeding, Swollen Glands or Bruising
Psych: Reports Calm; Denies Depression, Anxiety or Panic Disorder
Physical Exam
Vital Signs
Vital Signs
Temp Pulse Resp BP Pulse Ox
98.3 F 47 9 167/61 99
03/19/25 07:04 03/19/25 07:45 03/19/25 07:45 03/19/25 07:06 03/19/25 07:45
Physical Exam
General: Well Developed, Well Nourished, No Apparent Distress, Comfortable and Good Appetite; No Pain, Chills or Sweats
HEENT: NormoCephalic, Moist mucous membranes, Atraumatic, Good Dentition, PERRLA, Nose Appears Normal and Ears Appear Normal
Respiratory: Clear
Cardiac: S1/S2 and Regular Rhythm
Breast: Deferred by me
GI: Soft, Non Tender, Non Distended and Normal Bowel Sounds
Genito-urinary: Deferred by me
Musculoskeletal: No Clubbing, No Cyanosis and No Edema
Skin: Warm; No Rash, Jaundice, Ulcers, Lesions or Decubitus Ulcers
Neuro: Awake, Alert, Oriented, AO x 3, No Motor Deficits, Nonfocal/grossly intact and Cranial Nerves Intact
Hematologic/Lymphatic: No Lymphadenopathy
Psych: Calm
Laboratory Results
-
03/19/25 07:10
03/19/25 07:10
Laboratory Results
Total Bilirubin 0.6 mg/dl (0.2-1.3) 03/19/25 07:10
AST 21 U/L (14-36) 03/19/25 07:10
ALT 14 U/L (0-35) 03/19/25 07:10
Alkaline Phosphatase 92 U/L (38-126) 03/19/25 07:10
Troponin I 0.023 ng/ml 03/19/25 07:22
Data Reviewed
-
Diagnostic Radiology: Report Reviewed by me
CT Scan: Report Reviewed by me
Medical Tests (Nuc Med, Echo, EKG etc): Report Reviewed by me
Lab Data: Labs Reviewed by me
Old Records: Reviewed
Impression/Plan
-
IMPRESSION:
Patient is 74 years old with history of DVT, hypertension, bipolar, who came to the ER with generalized weakness after diarrhea illness, noted to have elevated lithium level.
Will be admitted under hospitalist service.
Assessment/plan:
[place] toxicity
Hold lithium for now.
Possible secondary to diarrheal illness and mild ERENDIRA which contribute to decreased lithium clearance.
IV fluid hydration.
Psych consulted
Patient on lithium for many years with no side effect or toxicity in the past
Diarrheal illness possible gastroenteritis.
As per the patient diarrhea start slow down.
No major electrolyte abnormalities.
Creatinine 1.1 which is close to baseline.
Continue IV fluid hydration.
Send stool for studies if possible.
History of hyperlipidemia
Continue statin
History of hypothyroidism.
Continue levothyroxine.
History of essential tremor.
Continue primidone.
Patient was started recently on propranolol but discontinued secondary to side effect.
Anxiety/depression
Continue Valium
Bipolar
Hold lithium, continue Lamictal
CODE STATUS: Full code
DVT prophylaxis: Lovenox
Diet: Regular diet.
Total time spent on today's encounter was 75 minutes which included time spent in counseling the patient/family regarding diagnosis and treatment plan as listed above, goals of care, and symptom management. Case was discussed with nursing staff,
specialists, and care coordinators/case management. All labs and imaging personally reviewed by me. Remainder the time spent in detailed review of previous records, lab data, imaging, and other medical provider documentation.
[2025-03-19 14:04] LABS: Urine Albumin 2+ (Neg - Trace); Urine Bilirubin Negative (Negative); Urine Character Cloudy (Clear); Urine Color Yellow; Urine Glucose Negative (Negative); Urine Ketone Negative (Negative); Urine Leukocyte 3+ (Negative); Urine Nitrite Negative (Negative); Urine Occult Blood 3+ (Negative); Urine Urobilinogen Negative (Neg - 1+)
--- NOTE | 2025-03-19 14:11 | CON.MD ---
Addendum entered and electronically signed by Eugenio Wolf MD 03/19/25 15:42:
note this consult was done today mar 19 2025
Original Note:
Consultation - Medical
-
patient seen chart reviewed. discussed with nursing patient is a 74 year old woman w a long hx of bipolar disorder who had been doing reasonably well w current medications. she was last hospitalized about five years ago with a mixed manic and
depressive picture. she saw the same psychiatrist for over [address] briones who has now retired. for the last six weeks she had not felt like herself. she was tired and out of sorts. she did not seek help until she noted she could not walk
comfortably. her tremor was worse. (she was being treated for what she thought was benign essential tremor with mysoline but this might have been a lithium tremor all along) she became alarmed when she had difficulty ambulating and felt weak and
nauseated. she was also suffering from diarrhea and came to er. she was found to be lithium toxic. this had never occurred in all the years she took lithium. the patient is now rather anxious. she is wondering where to go from here w her illness.
she is a bit dysphoric in the past couple of days worrying about what she saw as increasing infirmity. she is NOT suicidal. there is nothing to suggest psychosis. current medications include lamictal 300 mg daily sertraline 100 mg daily valium 5
mg q hs . she also takes synthroid 125 mg for hypothyroid and her tsh is normal. primidone a total of 300 mg daily (50 q am 250 q hs )
past psych hx patient was dx over 35 years ago w bipolar. has had manic depressed and mixed episodes. largely stable for five years. hosp 5 years ago and came to php at [facility] at that time. see above there is notation in chart early alzheimer's but
i cannot verify that and patient denied such a dx but admits she has troubles with remembering names
medical hx lithium toxicity see above pt w hs fatty liver, hepatomegaly bladder issues hld oa osteopenia htn gerd aortic regurg cholycystectomy and hysterectomy. ecg bradycardia and nsstt changes ua suggests infection cjulture pending
tsh is normal
fh denied
substance abuse gave up cigs 7 yrs ago. does not drink at all. used to drink ' a little)
social resides w h retired two step kids and two grands. has friends and some hobbies
mse alert ox3 pleasant cooperative no unusual behaviors speech and thought process goal oriented mood is anxious affect normal aver intell insight judgment ok
dx bipolar unspecified lithium toxicity
plan would stop lithium obviously and follow blood level. would be reluctant to restart. would continue w lamictal as a mood stabilizer. continue zoloft as is for now. would cut hs valium to 2.5 as in this age group valium has metabolites which
can build up. alternatives for sleep would be better. she needs to get a psychiatrist who can monitor and treat as appropriate upon dc. gave her dr mac's name and will call him to refer her. she has some issues we talked about and might benefit
from a therapist but it is unclear if she would be willing. her tremor and hypothryoid could be secondary to lithium and should be reassessed. she may not need synthroid or primidone when lithium out of her system. her pcp dr leung can reassess.
i ordered antithryoid antibodies which distinguishes between autoimmune thyroid issues and lithium induced she could have mild cognitive impairment but today she seemed quite appropriate. i do not know where the label 'early onset alzheimer's'
comes from. psych will follow
[2025-03-19 14:19] LABS: Urine Bacteria Many (Negative); Urine Squamous Cell 26-30 /LPF (Few)
[2025-03-19 14:20] LABS: Urine Red Blood Cell 0-2 /HPF (0-2); Urine White Cell 30-40 /HPF (0-5)
--- NOTE | 2025-03-19 16:38 | CM ---
manager [employer] reviewed patient's chart and met with patient and spouse at bedside, patient lives with spouse in a one story home with on steps to enter, patient is independent with adl's and uses a cane with ambulation. Patient was seen by psychiatry.
PCP: Dr. Vázquez
Pharmacy: [facility] in [place]
Plan; Home when stable.
[2025-03-19] MEDS: LOVENOX 40 MG SC (18:16)
[2025-03-19] MEDS: LAMICTAL 300 MG PO (18:16)
[2025-03-19] MEDS: VALIUM 2.5 MG PO (21:04)
[2025-03-19] MEDS: MYSOLINE 250 MG PO (21:04)
[2025-03-19] MEDS: ZOLOFT 100 MG PO ×2 (21:05)
[2025-03-19] MEDS: TYLENOL 650 MG PO (23:14)
[2025-03-19] MEDS: MELATONIN 5 MG PO (23:14)
[2025-03-20 03:15] VITALS: BP 121/56
[2025-03-20] MEDS: SYNTHROID 125 MCG PO (05:51)
[2025-03-20 07:32] VITALS: BP 155/75
[2025-03-20] MEDS: PRAVACHOL 10 MG PO (07:47)
[2025-03-20] MEDS: MYSOLINE 50 MG PO (07:47)
[2025-03-20] MEDS: NSS 1000 IV ×3 (07:49→21:55)
[2025-03-20 08:03] LABS: Blood Urea Nitrogen 11 mg/dl (7-17); Calcium 9.7 mg/dl (8.4-10.2); Carbon Dioxide 20 mmol/L (22-30); Chloride 117 mmol/L (98-107); Estimated Creatinine Clearance 58 ml/min; Glucose 108 mg/dl (70-99); Lithium 1.9 mmol/L (0.6-1.2); Potassium 4.2 mmol/L (3.5-5.1); Sodium 141 mmol/L (135-145); eGFR > 60.00
[2025-03-20 08:07] LABS: Hemoglobin 13.9 g/dL (12.0-16.0); Mean Corp Hgb Conc. 34.8 g/dL (33.0-37.0); Mean Corpuscular Hgb 32.6 pg (27.0-31.0); Mean Corpuscular Volume 93.9 fL (81.0-99.0); Mean Platelet Volume 9.9 fL (7.4-10.4); Platelet Count 77 10^3/uL (130-400); Red Blood Cell Count 4.26 10^6/uL (4.20-5.40); Red Cell Dist. Width 12.5 % (11.5-14.5); White Blood Cell Count 4.2 10^3/uL (4.8-10.8)
[2025-03-20] MEDS: TYLENOL 650 MG PO ×2 (10:46→19:14)
--- NOTE | 2025-03-20 10:48 | W.PN.HOSP.TC ---
Today's Communication/Plan
-
[place] level still elevated.
Discharge home with home health nurse once lithium level improves.
Assessment / Plan
Assessment / Plan
Impression:
Patient is 74 years old with history of DVT, hypertension, bipolar, who came to the ER with generalized weakness after diarrhea illness, noted to have elevated lithium level.
Started on IV fluids, lithium level improved to 1.9.
Seen by physical therapy recommended home physical therapy.
Assessment/plan:
[place] toxicity
Hold lithium for now.
IV fluid hydration.
Psych consulted, note appreciated.
03/20
Level is 1.9, continue to
Diarrheal illness possible gastroenteritis.
No further diarrhea.
No major electrolyte abnormalities.
Continue IV fluid hydration.
History of hyperlipidemia
Continue statin
History of hypothyroidism.
Continue levothyroxine.
History of essential tremor.
Continue primidone.
Patient was started recently on propranolol but discontinued secondary to side effect.
Anxiety/depression
Continue Valium
Bipolar
Hold lithium, continue Lamictal
CODE STATUS: Full code
DVT prophylaxis: Lovenox
Diet: Regular diet
Disposition: Continue to monitor clinically and lithium level.
Total time spent on today's encounter was 65 minutes which included time spent in counseling the patient/family regarding diagnosis and treatment plan as listed above, goals of care, and symptom management. Case was discussed with nursing staff,
specialists, and care coordinators/case management. All labs and imaging personally reviewed by me. Remainder the time spent in detailed review of previous records, lab data, imaging, and other medical provider documentation.
Anticipated Discharge: 24 - 48 hours
Subjective/Interval History
-
Date of Service: March 20, 2025
Patient seen and examined at bedside, overall feeling weak,
patient denies any chest pain or shortness of breath, no abdominal pain, no nausea, no vomiting, no diarrhea or constipation.
Objective Data
-
Labs:
Laboratory Results
03/20/25 03/20/25
07:28 07:29
WBC 4.2 L
Hgb 13.9
Hct 40.0
Plt Count 77 L D
Sodium 141
Potassium 4.2
Chloride 117 H
Carbon Dioxide 20 L
BUN 11
Creatinine 0.9
Glucose 108 H
Calcium 9.7
Vital Signs:
Vital Signs
Temp Pulse Resp BP Pulse Ox
98.1 F 49 16 155/75 98
03/20/25 07:32 03/20/25 07:32 03/20/25 07:32 03/20/25 07:32 03/20/25 07:32
I&O
03/19/25 03/20/25 03/21/25
06:59 06:59 06:59
Intake Total 480 / 480
Output Total 650 / 650
Balance -170 / -170
Physical Exam
-
General: Well Developed, Well Nourished, No Apparent Distress and Comfortable
HEENT: Normocephalic, Atraumatic, Moist Mucous Membranes, No Ptosis, PERRLA and Nose Appears Normal
Respiratory: Clear to Auscultation and Non Labored Respirations
Cardiac: Regular Rhythm and S1/S2
Breast: Deferred by me
GI: Soft, Nontender, Nondistended and Normal Bowel Sounds
Genito-urinary: No Costovertebral Tender
Musculoskeletal: No Clubbing, No Cyanosis and No Edema
Skin: Warm
Neuro: Awake, Alert, Oriented, AO x 3 and No Motor Deficits
Psych: Calm
Data Reviewed
-
Diagnostic Radiology: Image personally visualized and interpreted and Report Reviewed by me
CT Scan: Image personally visualized and interpreted and Report Reviewed by me
Ultrasound: Image personally visualized and interpreted and Report Reviewed by me
MRI: Image personally visualized and interpreted and Report Reviewed by me
Medical Tests (Nuc Med, Echo etc): Image personally visualized and interpreted and Report Reviewed by me
Labs: Labs Reviewed by me
Old Records: Reviewed
[2025-03-20 11:25] VITALS: BP 146/63
[2025-03-20 15:14] VITALS: BP 154/58
--- NOTE | 2025-03-20 15:28 | W.PN.UPDATE ---
Update Note
Progress Note Update
Pt seen & evaluated at bedside, chart reviewed, resting comfortably in bed. Li level down to 1.9 from 2.5 but still quite elevated, Cr down to 0.9 GFR >60. Labs gradually improving. Pt appears tremulous on exam, though per report this is improved.
Still with some confusion but improving, is fully oriented. Reports taking lithium at this dose (450mg) for several decades, tried to stop taking it about 10 yrs ago and within 6 weeks became quite depressed. Pt does worry about mood worsening over
next several weeks, discussed potential options such as increasing lamictal, adding low dose mood stabilizer, etc. Pt appeared reassured that there were still many other medication options other than lithium. She does plan to call Dr Garcia once
feeling better and plans to work on managing med changes/trials once discharged and on outpatient basis.
Denies acute depression, mood is stable, feeling anxious and overwhelmed by what happened during lithium toxicity but this is described as appropriately so.
Continue current regimen - would not trial new medications or adjust lamotrigine currently as pt still recovering, should make adjustment (ex increase lamictal trial mood stabilizer, etc) at some point in the next 2-3 weeks but this is not an urgent
need at this time as mood is currently stable
[2025-03-20] MEDS: LOVENOX 40 MG SC (17:53)
[2025-03-20] MEDS: LAMICTAL 300 MG PO (17:54)
[2025-03-20 19:30] VITALS: BP 149/64
[2025-03-20] MEDS: VALIUM 2.5 MG PO (21:52)
[2025-03-20] MEDS: ZOLOFT 100 MG PO (21:53)
[2025-03-20] MEDS: MYSOLINE 250 MG PO (21:54)
[2025-03-20 23:04] VITALS: BP 135/59
[2025-03-21 01:28] LABS: Lamotrigine (Lamictal) 4.8 ug/mL (3.0-15.0)
[2025-03-21 03:30] VITALS: BP 150/70
[2025-03-21] MEDS: SYNTHROID 125 MCG PO (05:46)
[2025-03-21 07:02] LABS: Hematocrit 35.9 % (37.0-47.0); Hemoglobin 12.1 g/dL (12.0-16.0); Mean Corp Hgb Conc. 33.7 g/dL (33.0-37.0); Mean Corpuscular Hgb 32.4 pg (27.0-31.0); Mean Platelet Volume 8.6 fL (7.4-10.4); Platelet Count 83 10^3/uL (130-400); Red Blood Cell Count 3.74 10^6/uL (4.20-5.40); Red Cell Dist. Width 12.6 % (11.5-14.5); White Blood Cell Count 3.7 10^3/uL (4.8-10.8)
[2025-03-21 07:25] LABS: Blood Urea Nitrogen 9 mg/dl (7-17); Calcium 9.3 mg/dl (8.4-10.2); Carbon Dioxide 21 mmol/L (22-30); Chloride 118 mmol/L (98-107); Estimated Creatinine Clearance 58 ml/min; Glucose 102 mg/dl (70-99); Lithium 1.3 mmol/L (0.6-1.2); Potassium 4.1 mmol/L (3.5-5.1); Sodium 143 mmol/L (135-145); eGFR > 60.00
[2025-03-21] MEDS: PRAVACHOL 10 MG PO (07:31)
[2025-03-21] MEDS: MYSOLINE 50 MG PO (07:31)
[2025-03-21 08:00] VITALS: BP 166/77
[2025-03-21] MEDS: NSS IV ×2 (09:21→14:28)
--- NOTE | 2025-03-21 10:31 | PTCARENOTE ---
Pt c/o generalized weakness and b/l hand tremors. Pt oob to chair and bathroom using walker - standby assist. at bedside. Pt wants to stay in hospital one more night d/t feeling weak.
--- NOTE | 2025-03-21 10:52 | CM ---
CM following re: discharge planning.
Reviewed pt's chart, met with pt and pt's at bedside.
Pt reports she lives with in an independent apartment at [facility], has 2 supportive children. pt reports she usually ambulates with a cane, has a walker and will start to use a walker for safety. Pt reports she has been
receiving [facility] at their community and pt requested to send a referral to [facility].
A referral to [facility] made.
IMM reviewed, placed on chart, pt has a copy.
Please fax discharge instructions to [facility] at [phone]
D/C plan: return back to her living arrangement at [facility] with [facility]. to transport.
CM will follow with discharge plan updates as needed.
--- NOTE | 2025-03-21 10:53 | W.PN.HOSP.TC ---
Today's Communication/Plan
-
discharge tomorrow Sunday home with home physical therpay.
Assessment / Plan
Assessment / Plan
Impression:
Patient is 74 years old with history of DVT, hypertension, bipolar, who came to the ER with generalized weakness after diarrhea illness, noted to have elevated lithium level.
Started on IV fluids, lithium level improved to 1.9.
Seen by physical therapy recommended home physical therapy.
[place] [employer] level continue to improve, currently 1.3.
Assessment/plan:
[employer] toxicity
Hold lithium for now.
IV fluid hydration.
Psych consulted, note appreciated.
03/20
Level is 1.9, continue IVf.
03/21
Hemoglobin 1.3
Diarrheal illness possible gastroenteritis.
No further diarrhea.
No major electrolyte abnormalities.
Continue IV fluid hydration.
History of hyperlipidemia
Continue statin
History of hypothyroidism.
Continue levothyroxine.
History of essential tremor.
Continue primidone.
Patient was started recently on propranolol but discontinued secondary to side effect.
Anxiety/depression
Continue Valium
Bipolar
Hold lithium, continue Lamictal
CODE STATUS: Full code
DVT prophylaxis: Lovenox
Diet: Regular diet
Family communication: Discussed with at bedside.
Disposition: Possible discharge tomorrow Sunday home with home physical therpay.
Total time spent on today's encounter was 65 minutes which included time spent in counseling the patient/family regarding diagnosis and treatment plan as listed above, goals of care, and symptom management. Case was discussed with nursing staff,
specialists, and care coordinators/case management. All labs and imaging personally reviewed by me. Remainder the time spent in detailed review of previous records, lab data, imaging, and other medical provider documentation.
Anticipated Discharge: Within 24 hours
Subjective/Interval History
-
Date of Service: March 21, 2025
Patient seen and examined at bedside, at bedside.
Patient is feeling weak, still having some diarrhea, lithium level 1.3.
Denies any chest pain or shortness of breath, no abdominal pain, no nausea, no vomiting, no diarrhea or constipation.
Objective Data
-
Labs:
Laboratory Results
03/21/25
06:24
WBC 3.7 L
Hgb 12.1
Hct 35.9 L
Plt Count 83 L
Sodium 143
Potassium 4.1
Chloride 118 H
Carbon Dioxide 21 L
BUN 9
Creatinine 0.9
Glucose 102 H
Calcium 9.3
Vital Signs:
Vital Signs
Temp Pulse Resp BP Pulse Ox
98.8 F 56 18 166/77 98
03/21/25 08:00 03/21/25 08:00 03/21/25 08:00 03/21/25 08:00 03/21/25 08:00
I&O
03/20/25 03/21/25 03/22/25
06:59 06:59 06:59
Intake Total 480 / 480 4060 / 4060
Output Total 650 / 650
Balance -170 / -170 4060 / 4060
Physical Exam
-
General: Well Developed, Well Nourished, No Apparent Distress and Comfortable
HEENT: Normocephalic, Atraumatic, Moist Mucous Membranes, No Ptosis, PERRLA and Nose Appears Normal
Respiratory: Clear to Auscultation and Non Labored Respirations
Cardiac: Regular Rhythm and S1/S2
Breast: Deferred by me
GI: Soft, Nontender, Nondistended and Normal Bowel Sounds
Genito-urinary: No Costovertebral Tender
Musculoskeletal: No Clubbing, No Cyanosis and No Edema
Skin: Warm
Neuro: Awake, Alert, Oriented, AO x 3 and No Motor Deficits
Psych: Calm
Data Reviewed
-
Diagnostic Radiology: Image personally visualized and interpreted and Report Reviewed by me
CT Scan: Image personally visualized and interpreted and Report Reviewed by me
Ultrasound: Image personally visualized and interpreted and Report Reviewed by me
MRI: Image personally visualized and interpreted and Report Reviewed by me
Medical Tests (Nuc Med, Echo etc): Image personally visualized and interpreted and Report Reviewed by me
Labs: Labs Reviewed by me
Old Records: Reviewed
--- NOTE | 2025-03-21 11:55 | W.PN.UPDATE ---
Update Note
Progress Note Update
Psychiatry follow up. Chart reviewed. Patient reports feeling better overall but still a little shaky and weak. She states she is comfortable with plan for discharge tomorrow and follow up with an outpatient psychiatrist for medication management.
She denies manic depressive or psychotic symptoms. She understands importance of monitoring mood closely given discontinuation of lithium and is aware of the signs/symptoms of depression and jono. Her and brother are present, supportive and
also understand what to look out for.
MSE- sitting in bed. good eye contact. fluent speech. logical and goal directed. denies SI/HI/AVH. no delusions. Good insight and judgement.
[place] 1.3 today (1.9 yesterday)
A/P- 74 yo female with bipolar disorder and resolving lithium toxicity. Stable for discharge tomorrow. Continue Zoloft, valium and Lamictal at current doses. Follow up to be scheduled with outpatient psychiatrist Dr. Garcia. Psychiatry will sign off.
[2025-03-21 12:16] VITALS: BP 178/79
[2025-03-21] MEDS: STERILE WATER FOR INJECTION 10 ML IV (14:06)
[2025-03-21] MEDS: ROCEPHIN 1000 MG IV (14:06)
[2025-03-21] MEDS: LAMICTAL 300 MG PO (17:30)
[2025-03-21] MEDS: LOVENOX 40 MG SC (17:30)
[2025-03-21 17:45] VITALS: BP 151/72
[2025-03-21 18:37] LABS: Thyroglobulin Antibodies 197.2 IU/mL (0.0-4.0); Thyroid Peroxidase Ab (TPO) 23.4 IU/mL (0.0-9.0)
[2025-03-21] MEDS: TYLENOL 650 MG PO (19:52)
[2025-03-21] MEDS: ZOLOFT 100 MG PO (21:29)
[2025-03-21] MEDS: VALIUM 2.5 MG PO (21:30)
[2025-03-21] MEDS: MYSOLINE 250 MG PO (21:30)
[2025-03-21 23:00] VITALS: BP 148/70
[2025-03-22 03:15] VITALS: BP 167/75
[2025-03-22] MEDS: SYNTHROID 125 MCG PO (05:41)
[2025-03-22 06:41] LABS: Hematocrit 38.6 % (37.0-47.0); Hemoglobin 13.2 g/dL (12.0-16.0); Mean Corp Hgb Conc. 34.2 g/dL (33.0-37.0); Mean Corpuscular Hgb 32.4 pg (27.0-31.0); Mean Corpuscular Volume 94.6 fL (81.0-99.0); Mean Platelet Volume 8.9 fL (7.4-10.4); Platelet Count 116 10^3/uL (130-400); Red Blood Cell Count 4.08 10^6/uL (4.20-5.40); Red Cell Dist. Width 12.9 % (11.5-14.5); White Blood Cell Count 5.2 10^3/uL (4.8-10.8)
[2025-03-22 07:00] VITALS: BP 193/78
[2025-03-22 07:01] LABS: Blood Urea Nitrogen 8 mg/dl (7-17); Calcium 10.2 mg/dl (8.4-10.2); Carbon Dioxide 23 mmol/L (22-30); Chloride 117 mmol/L (98-107); Estimated Creatinine Clearance 58 ml/min; Glucose 98 mg/dl (70-99); Lithium 0.9 mmol/L (0.6-1.2); Potassium 4.1 mmol/L (3.5-5.1); Sodium 143 mmol/L (135-145); eGFR > 60.00
[2025-03-22] MEDS: MYSOLINE 50 MG PO (08:30)
[2025-03-22] MEDS: PRAVACHOL 10 MG PO (08:30)
--- NOTE | 2025-03-22 10:52 | W.PN.HOSP.TC ---
Today's Communication/Plan
-
Discharge home today.
Assessment / Plan
Assessment / Plan
Impression:
Patient is 74 years old with history of DVT, hypertension, bipolar, who came to the ER with generalized weakness after diarrhea illness, noted to have elevated lithium level.
Started on IV fluids, lithium level improved to 1.9.
Seen by physical therapy recommended home physical therapy.
[place] level continue to improve, 1.3 then 0.9, cleared for discharge as per psychiatry.
Advised follow-up outpatient with psychiatrist Dr. Garcia.
Also patient noted to have UTI, started Rocephin, urine culture showed Klebsiella pneumonia, will be discharged on Ceftin.
Patient will be discharged home today in stable condition.
Assessment/plan:
[place] toxicity
Hold lithium for now.
IV fluid hydration.
Psych consulted, note appreciated.
03/20
Level is 1.9, continue IVf.
03/21
[place] 1.3
03/22
[place] 0.9
Acute UTI
started Rocephin, urine culture showed Klebsiella pneumonia, will be discharged on Ceftin.
Diarrheal illness possible gastroenteritis.
No further diarrhea.
No major electrolyte abnormalities.
Continue IV fluid hydration.
History of hyperlipidemia
Continue statin
History of hypothyroidism.
Continue levothyroxine.
History of essential tremor.
Continue primidone.
Patient was started recently on propranolol but discontinued secondary to side effect.
Anxiety/depression
Continue Valium
Bipolar
Hold lithium, continue Lamictal
CODE STATUS: Full code
DVT prophylaxis: Lovenox
Diet: Regular diet
Family communication: Discussed with at bedside.
Disposition: Dc home today.
Total time spent on today's encounter was 65 minutes which included time spent in counseling the patient/family regarding diagnosis and treatment plan as listed above, goals of care, and symptom management. Case was discussed with nursing staff,
specialists, and care coordinators/case management. All labs and imaging personally reviewed by me. Remainder the time spent in detailed review of previous records, lab data, imaging, and other medical provider documentation.
Anticipated Discharge: Today
Subjective/Interval History
-
Date of Service: March 22, 2025
Patient seen and examined at bedside, overall feeling weak, but otherwise patient denies any chest pain or shortness of breath, no abdominal pain, no nausea, no vomiting, no diarrhea or constipation.
Objective Data
-
Labs:
Laboratory Results
03/22/25
06:13
WBC 5.2
Hgb 13.2
Hct 38.6
Plt Count 116 L D
Sodium 143
Potassium 4.1
Chloride 117 H
Carbon Dioxide 23
BUN 8
Creatinine 0.9
Glucose 98
Calcium 10.2
Vital Signs:
Vital Signs
Temp Pulse Resp BP Pulse Ox
97.4 F 55 20 193/78 100
03/22/25 07:00 03/22/25 07:00 03/22/25 07:00 03/22/25 07:00 03/22/25 07:00
I&O
03/21/25 03/22/25 03/23/25
06:59 06:59 06:59
Intake Total 4060 / 4060
Balance 4060 / 4060
Physical Exam
-
General: Well Developed, Well Nourished, No Apparent Distress and Comfortable
HEENT: Normocephalic, Atraumatic, Moist Mucous Membranes, No Ptosis, PERRLA and Nose Appears Normal
Respiratory: Clear to Auscultation and Non Labored Respirations
Cardiac: Regular Rhythm and S1/S2
Breast: Deferred by me
GI: Soft, Nontender, Nondistended and Normal Bowel Sounds
Genito-urinary: No Costovertebral Tender
Musculoskeletal: No Clubbing, No Cyanosis and No Edema
Skin: Warm
Neuro: Awake, Alert, Oriented, AO x 3 and No Motor Deficits
Psych: Calm
Data Reviewed
-
Diagnostic Radiology: Image personally visualized and interpreted and Report Reviewed by me
CT Scan: Image personally visualized and interpreted and Report Reviewed by me
Ultrasound: Image personally visualized and interpreted and Report Reviewed by me
MRI: Image personally visualized and interpreted and Report Reviewed by me
Medical Tests (Nuc Med, Echo etc): Image personally visualized and interpreted and Report Reviewed by me
Labs: Labs Reviewed by me
Old Records: Reviewed
--- NOTE | 2025-03-22 10:59 | W.DCSUMMARY ---
Discharge Summary
Discharge Data
Date of Admission: 03/19/25
Date of Discharge: 03/22/25
-
Pending Results: No
Hospital Course
Hospital course
Patient is 74 years old with history of DVT, hypertension, bipolar, who came to the ER with generalized weakness after diarrhea illness, noted to have elevated lithium level.
Started on IV fluids, lithium level improved to 1.9.
Seen by physical therapy recommended home physical therapy.
[place] level continue to improve, 1.3 then 0.9, cleared for discharge as per psychiatry.
Advised follow-up outpatient with psychiatrist Dr. Garcia.
Also patient noted to have UTI, started Rocephin, urine culture showed Klebsiella pneumonia, will be discharged on Ceftin.
Patient will be discharged home today in stable condition.
During hospitalization patient was treated from the following
[place] toxicity
Hold lithium for now.
IV fluid hydration.
Psych consulted, note appreciated.
03/20
Level is 1.9, continue IVf.
03/21
[place] 1.3
03/22
[place] 0.9
Acute UTI
started Rocephin, urine culture showed Klebsiella pneumonia, will be discharged on Ceftin.
History of DVT.
Resume Eliquis on Dc
Diarrheal illness possible gastroenteritis.
No further diarrhea.
No major electrolyte abnormalities.
Continue IV fluid hydration.
History of hyperlipidemia
Continue statin
History of hypothyroidism.
Continue levothyroxine.
History of essential tremor.
Continue primidone.
Patient was started recently on propranolol but discontinued secondary to side effect.
Anxiety/depression
Continue Valium
Bipolar
Hold lithium, continue Lamictal
CODE STATUS: Full code
DVT prophylaxis: Lovenox
Diet: Regular diet
Family communication: Discussed with at bedside.
Disposition: Dc home today.
Total time spent on today's encounter was 40 minutes which included time spent in counseling the patient/family regarding diagnosis and treatment plan as listed above, goals of care, and symptom management. Case was discussed with nursing staff,
specialists, and care coordinators/case management. All labs and imaging personally reviewed by me. Remainder the time spent in detailed review of previous records, lab data, imaging, and other medical provider documentation.
Anticipated Discharge: Today
Discharge Plan
-
Patient Disposition: Home with Home Care
Discharge Diagnosis/Procedures: [place] toxicity.
UTI.
Hyperlipidemia.
Hypothyroidism.
Essential tremors.
Diet: As tolerated
Activity: With assistance and As tolerated
Other Services: PT and OT
Referrals:
Reji Vázquez MD [Family Provider] -
León Garcia MD [Consulting Staff] - in one to two weeks
Prescriptions:
New
cefuroxime axetil 500 mg tablet
500 mg PO BID 5 Days Qty: 10 0RF
Continued
sertraline 100 MG tablet
100 mg PO HS
primidone 50 MG tablet
50 mg PO DAILY
levothyroxine 125 mcg Tablet
125 mcg PO DAILY
lamotrigine [Lamictal] 150 mg Tablet
300 mg PO QPM
pravastatin 10 mg Tablet
10 mg PO DAILY
Eliquis 5 mg Tablet
5 mg PO BID
cholecalciferol (vitamin D3) [Vitamin D3] 50 mcg (2,000 unit) Capsule
50 mcg PO DAILY
acetaminophen [Tylenol] 325 mg Tablet
650 mg PO Q6HPRN PRN (Reason: mild pain)
primidone 250 mg Tablet
250 mg PO HS
bismuth subsalicylate [Pepto-Bismol] 262 mg Tablet,Chewable
2 tab PO DAILYPRN PRN (Reason: stomach issues)
Changed
diazepam [Valium] 5 mg Tablet
2.5 mg PO HS Qty: 0 0RF
Discontinued
lithium carbonate 150 mg capsule
150 mg PO HS
lithium carbonate 300 mg Capsule
300 mg PO HS
Discharge Orders:
Discharge Patient (As Directed); Ordered 03/22/25
Ordered By: Sandra Larson
Discharge Date and Time
Print Language: [place]
[2025-03-22 11:00] VITALS: BP 148/76
--- NOTE | 2025-03-22 11:37 | CM ---
Chart reviewed and plan is to home with spouse when stable, to [facility] independent living with [facility].
Please fax discharge instructions to [facility] at [phone]
[2025-03-22] MEDS: STERILE WATER FOR INJECTION 10 ML IV (13:01)
[2025-03-22] MEDS: ROCEPHIN 1000 MG IV (13:01)
== END 2025-03-22 13:20 | disposition home or self-care (01) | DRG 918 ==
LOC: 4 WEST ACU 09:54
PROVIDERS: Physician Assistant; ADMITTING PHYSICIAN General Practice; EMERGENCY PHYSICIAN Emergency Medicine; FAMILY PHYSICIAN Family Medicine; OTHER PHYSICIAN Psychiatry & Neurology Psychiatry
DX: T56.891A Toxic effect of other metals, accidental (unintentional), initial encounter (principal); N39.0 Urinary tract infection, site not specified; N17.9 Acute kidney failure, unspecified; F31.9 Bipolar disorder, unspecified; F41.9 Anxiety disorder, unspecified; E78.5 Hyperlipidemia, unspecified; E03.9 Hypothyroidism, unspecified; G25.0 Essential tremor; K52.9 Noninfective gastroenteritis and colitis, unspecified; Z11.52 Encounter for screening for COVID-19; Z87.891 Personal history of nicotine dependence; Z79.01 Long term (current) use of anticoagulants
CPT/HCPCS: 80048; 80053; 80175; 80178; 81003; 81015; 83735; 84443; 84484; 85025; 85027; 86376; 86800; 86850; 86900; 86901; 87077; 87086; 87186; 87502; 87811; 93005; 96361; 96374; 97162; 97167; 99284

== ENCOUNTER → 2025-04-09 06:59 | Outpatient (REF) | payer MEDICARE, OTHER, SELFPAY ==
[2025-04-09 07:38] LABS: % Basophils 1.1 % (0-2); % Eosinophils 1.4 % (0-6); % Immature Granulocytes 0.3 % (0-0.5); % Lymphocytes 24.6 % (20.5-51.1); % Monocytes 7.1 % (1.7-9.3); % Neutrophils 65.5 % (42.2-75.2); Absolute Eosinophils 0.1 10^3/uL (0-0.7); Absolute Lymphocytes 0.9 10^3/uL (1.2-3.4); Absolute Monocytes 0.3 10^3/uL (0.1-0.6); Absolute Neutrophils 2.3 10^3/uL (1.4-6.5); Hematocrit 39.5 % (37.0-47.0); Hemoglobin 12.9 g/dL (12.0-16.0); Mean Corp Hgb Conc. 32.7 g/dL (33.0-37.0); Mean Platelet Volume 8.6 fL (7.4-10.4); Nucleated Red Blood Cells % 0 %; Platelet Count 108 10^3/uL (130-400); Red Blood Cell Count 4.03 10^6/uL (4.20-5.40); Red Cell Dist. Width 12.6 % (11.5-14.5); White Blood Cell Count 3.5 10^3/uL (4.8-10.8)
[2025-04-09 08:20] LABS: ALT (SGPT) 12 U/L (0-35); AST (SGOT) 23 U/L (14-36); Albumin 4.5 g/dl (3.5-5.0); Alkaline Phosphatase 75 U/L (38-126); Blood Urea Nitrogen 19 mg/dl (7-17); Calcium 9.8 mg/dl (8.4-10.2); Carbon Dioxide 28 mmol/L (22-30); Chloride 109 mmol/L (98-107); Glucose 83 mg/dl (70-99); HDL Cholesterol 93 mg/dl; LDL Cholesterol, Calculated 91 mg/dl; Lithium < 0.2 mmol/L (0.6-1.2); Potassium 4.8 mmol/L (3.5-5.1); Sodium 143 mmol/L (135-145); Total Bilirubin 0.4 mg/dl (0.2-1.3); Total Cholesterol 203 mg/dl (50-199); Total Protein 7.1 g/dl (6.3-8.2); Triglyceride 97 mg/dl (10-149); Very Low Density Lipoprotein 19 mg/dl (0-30); eGFR 59.49
[2025-04-09 11:08] LABS: Vitamin D, 25-OH*** 40.4 ng/mL (30-80)
[2025-04-09 11:21] LABS: TSH 0.74 uIU/ml (0.47-4.68)
[2025-04-09 11:41] LABS: Vitamin B12 510 pg/ml (239-931)
== END ==
LOC: REG 06:59
PROVIDERS: ATTENDING PHYSICIAN Nurse Practitioner Psychiatric/Mental Health; FAMILY PHYSICIAN Family Medicine
DX: Z79.899 Other long term (current) drug therapy (principal); Z51.81 Encounter for therapeutic drug level monitoring; R53.83 Other fatigue; R41.82 Altered mental status, unspecified
CPT/HCPCS: 36415; 80053; 80061; 80178; 82306; 82607; 84443; 85025

== ENCOUNTER → 2025-04-20 09:37 | Outpatient (REF) | payer MEDICARE, OTHER, SELFPAY | LOC: CLAB 09:37 | PROVIDERS: ATTENDING PHYSICIAN Urology | DX: N39.0 Urinary tract infection, site not specified (principal) | CPT/HCPCS: 87077; 87086; 87186 ==

== ENCOUNTER → 2025-04-23 10:42 | Outpatient (REF) | payer MEDICARE, OTHER, SELFPAY ==
[2025-04-23 12:03] LABS: Erythrocyte Sed Rate 19 mm/hour (0-20)
== END ==
LOC: REG 10:42
PROVIDERS: ATTENDING PHYSICIAN Orthopaedic Surgery; FAMILY PHYSICIAN Family Medicine
DX: Z96.643 Presence of artificial hip joint, bilateral (principal)
CPT/HCPCS: 36415; 85652; 86140

== ENCOUNTER 2025-05-11 10:17 | Emergency (ER) | payer MEDICARE, OTHER, SELFPAY ==
[2025-05-11 10:21] VITALS: BP 157/75
[2025-05-11 11:30] VITALS: BMI 21.8
[2025-05-11 11:33] VITALS: BP 137/61
[2025-05-11 11:53] LABS: Hematocrit 39.0 % (37.0-47.0); Hemoglobin 13.2 g/dL (12.0-16.0); Mean Corp Hgb Conc. 33.8 g/dL (33.0-37.0); Mean Corpuscular Volume 94.9 fL (81.0-99.0); Nucleated Red Blood Cells % 0 %; Platelet Count 124 10^3/uL (130-400); Red Cell Dist. Width 12.3 % (11.5-14.5)
[2025-05-11 11:54] LABS: Urine Character Clear (Clear)
--- NOTE | 2025-05-11 11:55 | ED.GENMED ---
History of Present Illness
General
Chief Complaint: Urinary Symptoms
Source: patient
Exam Limitations: none
Time Seen by Provider: 05/11/25 11:18
Nursing documentation reviewed up to this point in time: agreed with
History of Present Illness
History of Present Illness:
Patient who completed course of antibiotics for UTI 2 weeks ago, presents to ED secondary to continual urinary frequency along with burning sensation with urination, as well as development of abdominal distention and lower back/flank pain over the
past 2 days. Denies fever or chills. Denies nausea or vomiting. Patient reports diarrhea. Patient reports incomplete voiding sensation. Denies loss of appetite.
Past History
Past History
ED Past Medical History: HTN, Psychiatric (Bipolar, depression) and Other (Chronic bladder spasms, frequent UTIs); Negative IDDM or NIDDM
ED Past Surgical History: Cholecystectomy, Gynecological (Hysterectomy), Orthopedic (Bilateral hip replacements) and Urological (sacral nerve stimulator for bladder spasms, turned off d/t ineffectiveness)
Social History
Tobacco: Former smoker
Alcohol: None
Drug: None
Personal:
Living: with family
Employment: Not employed
Family History
Family History: Other (Noncontributory)
Review of Systems
Review of Systems
Allergies reviewed?: Yes
All Other Systems: ROS reviewed and negative except as documented in HPI and ROS
Constitutional: Reports no symptoms; Denies fever
Respiratory: Reports no symptoms
Cardiac: Reports no symptoms
ABD/GI: Reports diarrhea and other (abdominal distention); Denies vomiting
: Reports dysuria, frequency, flank pain and urgency
Musculoskeletal: Reports back pain
Skin: Reports no symptoms
Neurological: Reports no symptoms
Phy Exam
Physical Exam
Physical Exam:
Physical Exam
General: no apparent distress, not acutely ill. afebrile
Head: nc/at. eomi
Neck: supple. normal range of motion.
Heart: s1/s2 regular rate and rhythm
Lungs: no acute respiratory distress. clear bilaterally
Abdomen: normal bowel sounds. not tender. mild distention noted
Neuro: alert and oriented x 3. no focal neurological deficits
Skin: no rash
Psychiatric: well kept. interactive and cooperative
Extremities: no edema. no calf tenderness.
Course
Orders/Labs/Results
Orders:
Orders
05/11/25 11:26
Bladder Scan- Treatment ONCE
05/11/25 11:27
0.9% Sodium Chloride 500 ml [Nss] 500 ml IV BOLUS
05/11/25 11:32
Complete Blood Count/With Diff Urgent
Comprehensive Metabolic Panel Urgent
Magnesium Urgent
Urinalysis Reflex To Culture Urgent
Date Specimen was Collected: 05/11/25
Time Specimen was Collected: 11:27
Urine Microscopic Reflex Cult Urgent
Urine Culture Urgent
ARAMIS Source: U
Specimen Description:
Date Specimen was Collected: 05/11/25
Time Specimen was Collected: 11:27
05/11/25 12:08
CT Abd/pelvis W Iv Cont Urgent
Comment:
Reason For Exam: right flank pain
05/11/25 13:14
Acetaminophen [Tylenol] 650 mg PO NOW STA
Ketorolac [Toradol] 15 mg IV NOW STA
05/11/25 13:19
Blood Culture Q30M
ARAMIS Source: Blood/Venous
Specimen Description:
Blood Culture Q30M
ARAMIS Source: Blood/Venous
Specimen Description:
05/11/25 13:34
Catheter- Indwelling As Directed
Reason for insertion: Acute Retention
Discontinue Date/Time: 05/14/25 0600
Abnormal Lab Results
05/11/25
11:32
WBC 4.2 L 10^3/uL
(4.8-10.8)
RBC 4.11 L 10^6/uL
(4.20-5.40)
MCH 32.1 H pg
(27.0-31.0)
Plt Count 124 L 10^3/uL
(130-400)
Chloride 108 H mmol/L
(98-107)
BUN 24 H mg/dl
(7-17)
Creatinine 1.1 H mg/dL
(0.6-1.0)
Ur Occult Blood Reflex 4+ A
(Negative)
Urine Nitrite (Reflex) Positive A
(Negative)
Leukocyte Esterase Rfl 3+ A
(Negative)
Urine WBC (Reflex) 50-60 A /HPF
(0-5)
Urine Bacteria (Reflex) Moderate A
(Negative)
Urine Albumin (Reflex) 2+ A
(Neg - Trace)
05/11/25 11:32
05/11/25 11:32
Vital Signs
Initial and Last Documented VS:
Initial Vital Signs
Pulse Resp BP Pulse Ox
58 16 157/75 98
05/11/25 10:21 05/11/25 10:21 05/11/25 10:21 05/11/25 10:21
Last Documented Vital Signs
Pulse Resp BP Pulse Ox
58 16 137/61 100
05/11/25 10:21 05/11/25 10:21 05/11/25 11:33 05/11/25 13:30
MDM/Problems Addressed
MDM/Problems Addressed:
Discussed with on-call urology, , and decision made to place Torrez catheter along with obtaining CT abd/pel to evaluate for other potential etiology for her discomfort. After Torrez catheter insertion, patient reports significant
improvement symptoms.
Initial urinalysis noted and discussed with on-call infectious disease specialist, . As patient has already completed 2 course of antibiotics, she does not feel that patient has an acute urinary tract infection, but her symptoms may be
secondary to underlying interstitial cystitis and exacerbation. However, in light of symptoms, does recommend treating patient with 7-day course of oral antibiotics, Keflex, along with urology outpatient follow-up, for outpatient voiding trial
CT abdomen pelvis reviewed and discussed with patient. No acute findings noted. As such, patient will be discharged home at this time with Torrez catheter in place along with urgent outpatient follow-up with her urologist.
*Pulse Oximetry
SaO2: 97
Oxygen Mode of Delivery: Room air
Patient hypoxic: no
*Critical Care Note
Total Time (30-74mins, 75-104mins- exclusive of procedures): Not Applicable
ED Attending Note
-
Portions of this chart may have been created with voice recognition software.� Occasional wrong word or��sound alike� substitutions may have occurred due to the inherent limitations of voice recognition software.
Discharge Plan
Departure
Patient Disposition: Home (Routine Discharge)
Date of Disposition: 05/11/25
Time of Disposition: 14:34
Patient with high blood pressure during this ER visit?: Yes
Condition: Fair
Discharge Problem:
Interstitial cystitis, Acute urinary retention
Instructions: Urinary retention - Discharge instructions, Bladder pain syndrome (interstitial cystitis) - ED discharge instructions
Prescriptions:
New
cephalexin 500 mg capsule
500 mg PO Q8H Qty: 21 0RF
tramadol 50 mg tablet
50 mg PO Q8H PRN (Reason: Pain) Qty: 14 0RF
phenazopyridine [Pyridium] 100 mg tablet
100 mg PO TID PRN (Reason: Pain) Qty: 20 0RF
No Action
sertraline 100 MG tablet
100 mg PO HS
primidone 50 MG tablet
50 mg PO DAILY
levothyroxine 125 mcg Tablet
125 mcg PO DAILY
lamotrigine [Lamictal] 150 mg Tablet
300 mg PO QPM
pravastatin 10 mg Tablet
10 mg PO DAILY
Eliquis 5 mg Tablet
5 mg PO BID
cholecalciferol (vitamin D3) [Vitamin D3] 50 mcg (2,000 unit) Capsule
50 mcg PO DAILY
acetaminophen [Tylenol] 325 mg Tablet
650 mg PO Q6HPRN PRN (Reason: mild pain)
primidone 250 mg Tablet
250 mg PO HS
bismuth subsalicylate [Pepto-Bismol] 262 mg Tablet,Chewable
2 tab PO DAILYPRN PRN (Reason: stomach issues)
cefuroxime axetil 500 mg tablet
500 mg PO BID 5 Days Qty: 10 0RF
diazepam [Valium] 5 mg Tablet
2.5 mg PO HS Qty: 0 0RF
Referrals:
Reji Vázquez MD [Family Provider, Family Practice]
Katie Zelaya DO [Active, Urology]
Activity Restrictions/Additional Instructions:
As discussed, please follow-up with your primary care physician and urologist for reevaluation. Please consider return to ED with worsening symptoms. Your prescription has been sent electronically to [facility] pharmacy in [place].
Interventions
Interventions:
*Risk Screen - Suicide Last Done: 05/11/25 11:32
*General Assessment Last Done: 05/11/25 11:32
*Neglect/Abuse Screening Last Done: 05/11/25 11:32
*ED- Fall Risk Assessment Last Done: 05/11/25 10:51
*ED COVID-19 Vaccine History Last Done: 05/11/25 11:32
*Nursing Disposition Last Done: 05/11/25 15:31
ED-Female Genitourinary Assessment Last Done: 05/11/25 11:32
Discharge Date and Time
Discharge Date/Time: 05/11/25 15:34
Print Language: [email or web address]
[2025-05-11 12:18] LABS: Urine Red Blood Cell 0-2 /HPF (0-2); Urine White Cell 50-60 /HPF (0-5)
[2025-05-11 13:15] LABS: ALT (SGPT) 10 U/L (0-35); AST (SGOT) 20 U/L (14-36); Albumin 4.2 g/dl (3.5-5.0); Alkaline Phosphatase 67 U/L (38-126); Blood Urea Nitrogen 24 mg/dl (7-17); Calcium 9.9 mg/dl (8.4-10.2); Carbon Dioxide 29 mmol/L (22-30); Chloride 108 mmol/L (98-107); Estimated Creatinine Clearance 48 ml/min; Glucose 85 mg/dl (70-99); Magnesium 2.0 mg/dl (1.6-2.3); Potassium 4.5 mmol/L (3.5-5.1); Sodium 140 mmol/L (135-145); Total Protein 6.7 g/dl (6.3-8.2); eGFR 53.06
[2025-05-11] MEDS: TYLENOL 650 MG PO (13:17)
[2025-05-11] MEDS: TORADOL 15 MG IV (13:18)
== END 2025-05-11 15:34 | disposition home or self-care (01) ==
LOC: EMR 10:17
PROVIDERS: EMERGENCY PHYSICIAN Emergency Medicine; FAMILY PHYSICIAN Family Medicine
DX: N30.10 Interstitial cystitis (chronic) without hematuria (principal); R33.9 Retention of urine, unspecified; R19.7 Diarrhea, unspecified; M54.50 Low back pain, unspecified; R10.9 Unspecified abdominal pain; R11.0 Nausea; I10 Essential (primary) hypertension; F31.9 Bipolar disorder, unspecified; F32.A Depression, unspecified; Z87.440 Personal history of urinary (tract) infections; Z87.891 Personal history of nicotine dependence; Z90.49 Acquired absence of other specified parts of digestive tract; Z88.1 Allergy status to other antibiotic agents; Z88.8 Allergy status to other drugs, medicaments and biological substances; Z79.01 Long term (current) use of anticoagulants
CPT/HCPCS: 99284; 51702; 96374; 51798; 74177; 80053; 81003; 81015; 83735; 85025; 87040; 87077; 87086; 87186; Q9967

== ENCOUNTER → 2025-06-17 11:14 | Outpatient (REF) | payer MEDICARE, OTHER, SELFPAY ==
[2025-06-17 18:36] LABS: Urine Character Clear (Clear)
[2025-06-17 18:46] LABS: Urine Squamous Cell >30 /LPF (Few)
[2025-06-17 18:47] LABS: Urine White Cell 30-40 /HPF (0-5)
== END ==
LOC: CLAB 11:14
PROVIDERS: ATTENDING PHYSICIAN Nurse Practitioner
DX: N39.0 Urinary tract infection, site not specified (principal)
CPT/HCPCS: 81003; 81015; 87086

== ENCOUNTER → 2025-06-24 12:00 | Outpatient (REF) | payer MEDICARE, OTHER, SELFPAY ==
[2025-06-24 12:44] LABS: Urine Character Cloudy (Clear)
[2025-06-24 12:54] LABS: Urine Red Blood Cell 0-2 /HPF (0-2); Urine Squamous Cell 0-2 /LPF (Few); Urine White Cell 70-80 /HPF (0-5)
== END ==
LOC: REG 12:00
PROVIDERS: ATTENDING PHYSICIAN Urology; FAMILY PHYSICIAN Family Medicine
DX: N39.0 Urinary tract infection, site not specified (principal)
CPT/HCPCS: 81003; 81015; 87077; 87086

== ENCOUNTER → 2025-07-03 11:17 | Outpatient (REF) | payer MEDICARE, OTHER, SELFPAY ==
[2025-07-03 12:19] LABS: Urine Character Cloudy (Clear)
[2025-07-03 12:26] LABS: Urine Red Blood Cell 0-2 /HPF (0-2); Urine White Cell 30-40 /HPF (0-5)
== END ==
LOC: REG 11:17
PROVIDERS: ATTENDING PHYSICIAN Urology; FAMILY PHYSICIAN Family Medicine
DX: N39.0 Urinary tract infection, site not specified (principal)
CPT/HCPCS: 81003; 81015; 87077; 87086

== ENCOUNTER → 2025-07-16 10:21 | Outpatient (REF) | payer MEDICARE, OTHER, SELFPAY | LOC: WDC 10:21 | PROVIDERS: ATTENDING PHYSICIAN Family Medicine | DX: N63.20 Unspecified lump in the left breast, unspecified quadrant (principal); Z12.31 Encounter for screening mammogram for malignant neoplasm of breast | CPT/HCPCS: 76642; 77062; 77066 ==

== ENCOUNTER → 2025-07-20 09:35 | Outpatient (REF) | payer MEDICARE, OTHER, SELFPAY ==
[2025-07-20 11:22] LABS: Hematocrit 38.5 % (37.0-47.0); Hemoglobin 13.1 g/dL (12.0-16.0); Mean Corp Hgb Conc. 34.0 g/dL (33.0-37.0); Mean Corpuscular Volume 95.1 fL (81.0-99.0); Nucleated Red Blood Cells % 0 %; Platelet Count 94 10^3/uL (130-400); Red Cell Dist. Width 11.9 % (11.5-14.5)
[2025-07-20 11:58] LABS: Blood Urea Nitrogen 21 mg/dl (7-17); Calcium 9.4 mg/dl (8.4-10.2); Carbon Dioxide 27 mmol/L (22-30); Chloride 107 mmol/L (98-107); Glucose 92 mg/dl (70-99); Potassium 4.5 mmol/L (3.5-5.1); Sodium 138 mmol/L (135-145); eGFR 52.73
== END ==
LOC: RCS 09:35
PROVIDERS: ATTENDING PHYSICIAN Nurse Practitioner; FAMILY PHYSICIAN Family Medicine
DX: N30.10 Interstitial cystitis (chronic) without hematuria (principal)
CPT/HCPCS: 36415; 80048; 85025; 93005

== ENCOUNTER → 2025-07-31 15:18 | Outpatient (REF) | payer MEDICARE, OTHER, SELFPAY ==
[2025-07-31 16:53] LABS: Urine Character Slightly Cloudy (Clear)
[2025-07-31 17:20] LABS: Urine Red Blood Cell 0-2 /HPF (0-2); Urine White Cell 26-30 /HPF (0-5)
== END ==
LOC: CLAB 15:18
PROVIDERS: ATTENDING PHYSICIAN Nurse Practitioner
DX: N39.0 Urinary tract infection, site not specified (principal)
CPT/HCPCS: 81003; 81015; 87077; 87086; 87186

== ENCOUNTER → 2025-09-17 15:16 | Outpatient (REF) | payer MEDICARE, OTHER, SELFPAY | LOC: PAVMRI 15:16 | PROVIDERS: ATTENDING PHYSICIAN Family Medicine | DX: Z23 Encounter for immunization (principal); M53.3 Sacrococcygeal disorders, not elsewhere classified; Z96.641 Presence of right artificial hip joint | CPT/HCPCS: 72195; 73721 ==

== ENCOUNTER → 2025-09-22 13:12 | Outpatient (REF) | payer MEDICARE, OTHER, SELFPAY ==
[2025-09-22 17:07] LABS: Urine Character Cloudy (Clear)
[2025-09-22 17:26] LABS: Urine White Cell >100 /HPF (0-5)
== END ==
LOC: CLAB 13:12
PROVIDERS: ATTENDING PHYSICIAN Nurse Practitioner
DX: N39.0 Urinary tract infection, site not specified (principal)
CPT/HCPCS: 81003; 81015; 87077; 87086; 87186

== ENCOUNTER → 2025-10-26 09:54 | Outpatient (REF) | payer MEDICARE, OTHER, SELFPAY ==
[2025-10-26 11:17] LABS: Urine Character Slightly Cloudy (Clear)
[2025-10-26 12:43] LABS: Urine White Cell >100 /HPF (0-5)
== END ==
LOC: REG 09:54
PROVIDERS: ATTENDING PHYSICIAN Nurse Practitioner; FAMILY PHYSICIAN Family Medicine
DX: N39.0 Urinary tract infection, site not specified (principal)
CPT/HCPCS: 81003; 81015; 87077; 87086; 87186